=== PATIENT | male | born 1995 | race Caucasian/White ===

== ENCOUNTER 2016-04-17 11:16 | Emergency (ER) | payer SELFPAY ==
[2016-04-17] MEDS ORDERED: ADACEL/BOOSTRIX VACCINE (DIPHTH/PERTUSS/ACELL/TETANUS)0.5ML SYR (90715) As Ordered ONE (11:41)
--- NOTE | 2016-04-17 11:50 | EDDOCDS ---
Physician Documentation [facility] Name: Jimmie Noble Age: 20 yrs Sex: Male : 1995 Arrival Date: 04/17/2016 Time: 11:16 Bed Triage 1 Private MD: NO PRIMARY PHYSICIAN, . Disposition: 04/17/16 11:36 Discharged to Home/Self Care. Impression: Laceration without foreign body of scalp. - Condition is Stable. - Discharge Instructions: Stitches, Virgen, or Adhesive Wound Closure, Facial or Scalp Contusion, [id number]. - Medication Reconciliation, Local Pharmacy Hours form. - [facility]; When: 1 week; Reason: Staple/Suture removal, Further diagnostic work-up, Recheck today's complaints, Continuance of care. - Problem is new. - Symptoms have improved. Historical: - Allergies: no known allergies; - Home Meds: 1. Ventolin Rotahaler/Rotacaps Inhl 2 puffs as needed - PMHx: Asthma; - Social history: Smoking status: Patient uses tobacco products, current every day smoker. No barriers to communication noted, The patient speaks fluent Lao. - Family history: Not pertinent. - : The pt / caregiver states he / she is not on anticoagulants. Home medication list is obtained from the patient. - Exposure Risk Screening:: None identified. - Tetanus status: unknown. Vital Signs: 04/17 11:20 BP 144 / 61; Pulse 138; Resp 17; Temp 98.8(T); Pulse Ox 98% on R/A; Weight 90.72 kg / lr2 200 lbs (R); Height 6 ft. 0 in. (182.88 cm) (R); Pain 7/10; 11:20 Body Mass Index 27.12 (90.72 kg, 182.88 cm) lr2 Shahab Coma Score: 11:25 Eye Response: spontaneous(4). Verbal Response: oriented(5). Motor Response: obeys kr3 commands(6). Total: 15. Procedures: 11:34 Laceration repair:. btw Laceration: 11:34 Wound Repair of 1.5cm ( 0.6in ) full thickness laceration to right frontal area. Distal btw neuro/vascular/tendon intact. Anesthesia: None with None. Wound prep: Simple cleansing with hibiclenz by provider, Wound irrigation with saline by provider, Wound explored minimally. Skin closed with 3 thin layer [place] using Staple gun. Dressed with bandaid. Patient tolerated well. MDM: 11:40 Financial registration complete. lg 11:40 Tetanus- Diptheria-Acellular Pertussis 0.5 ml IM once; Routine booster 10-64yrs, >64 btw [facility]. Administered Medications: 11:43 Drug: Tetanus- Diptheria-Acellular Pertussis 0.5 ml [diphth,pertussis(acel),tetanus 2.5 kr3 Lf unit-8 mcg-5 Lf/0.5mL IM syringe (0.5 mL)] {Ibm Bpm Developer: [employer]. Exp: 05/20/2018. Lot #: [id number]. } Route: IM; Site: left deltoid; Signatures: Amie Felder Reg Reg lg Robie, Kathleen, RN RN kr3 Javon Prasad PA PA btw MTDPrudence
--- NOTE | 2016-04-17 11:50 | EDDOCDS ---
Nurse's Notes [facility] Name: Jimmie Noble Age: 20 yrs Sex: Male : 1995 Arrival Date: 04/17/2016 Time: 11:16 Bed Triage 1 Private MD: NO PRIMARY PHYSICIAN, . Diagnosis: Laceration without foreign body of scalp Presentation: 04/17 11:25 Presenting complaint: Patient states: slipped off steps last night and hit head. No kr3 LOC. reports cut right side of head. This patient has no additional risk factors. Mechanism of Injury: resulted from a fall. Adult Sepsis Screening: The patient does not have new or worsening altered mentation. Patient's respiratory rate is less than 22. Systolic blood pressure is greater than 100. Patient has a qSOFA score of 0- Negative Sepsis Screen. Suicide/Homicide risk assessment- the patient denies having any suicidal and/or homicidal ideations and does not present with any other emotional, behavioral or mental health complaints. Status: Patient is not a public service director or dependent. Transition of care: patient was not received from another setting of care. 11:25 Acuity: VINCE Level 4 kr3 11:25 Method Of Arrival: Walkin/Carried/Asstd kr3 Triage Assessment: 11:28 General: Appears in no apparent distress, comfortable, Behavior is cooperative. Pain: kr3 Location: head Pain currently is 6 out of 10 on a pain scale. Pt Declines HIV testing. Neurological: Level of Consciousness is awake, alert, Reports no additional symptoms. Respiratory: Respiratory effort is even, unlabored. Derm: Skin is normal. Injury Description: Laceration sustained to left occipital area is bleeding no active bleeding noted. Historical: - Allergies: no known allergies; - Home Meds: 1. Ventolin Rotahaler/Rotacaps Inhl 2 puffs as needed - PMHx: Asthma; - Social history: Smoking status: Patient uses tobacco products, current every day smoker. No barriers to communication noted, The patient speaks fluent Nepali. - Family history: Not pertinent. - : The pt / caregiver states he / she is not on anticoagulants. Home medication list is obtained from the patient. - Exposure Risk Screening:: None identified. - Tetanus status: unknown. Screenin:45 Screening information is obtained from the patient. Fall risk: No risks identified. kr3 Assistance ADL's: requires no assistance with activities of daily living. Abuse/DV Screen: The patient / caregiver reports he/she is: not in a situation that causes fear, pain or injury. Nutritional screening: No deficits noted. Advance Directives: Currently, there is no health care proxy. home support is adequate. Assessment: 11:45 Reassessment: Patient appears in no apparent distress at this time. Neurological: No kr3 deficits noted. Vital Signs: 11:20 BP 144 / 61; Pulse 138; Resp 17; Temp 98.8(T); Pulse Ox 98% on R/A; Weight 90.72 kg lr2 (R); Height 6 ft. 0 in. (182.88 cm) (R); Pain 7/10; 11:20 Body Mass Index 27.12 (90.72 kg, 182.88 cm) lr2 Vitals: 11:20 Log In Time: April 17, 2016 at 11:16. lr2 Shahab Coma Score: 11:25 Eye Response: spontaneous(4). Verbal Response: oriented(5). Motor Response: obeys kr3 commands(6). Total: 15. ED Course: 11:18 Patient visited by Elise Mauricio. lr2 11:18 Patient moved to Waiting lr2 11:19 NO PRIMARY PHYSICIAN, . is Private Physician. lr2 11:19 Patient moved to Pre RCE lr2 11:25 Patient moved to Triage 1 srm 11:26 Triage Initiated kr3 11:27 Javon Prasad PA is PHCP. btw 11:27 Altagracia Mckeon MD is Attending Physician. btw 11:27 Patient visited by Javon Prasad PA. btw 11:36 [facility] is Referral Physician. btw 11:45 The patient / caregiver is instructed regarding the plan of care and ED course. kr3 Accompanied by Friend, Patient has correct armband on for positive identification. 11:45 No IV's were initiated during this patient's visit. No procedures done that require kr3 assistance. Administered Medications: 11:43 Drug: Tetanus- Diptheria-Acellular Pertussis 0.5 ml [diphth,pertussis(acel),tetanus 2.5 kr3 Lf unit-8 mcg-5 Lf/0.5mL IM syringe (0.5 mL)] {Angiography Nurse: [employer]. Exp: 05/20/2018. Lot #: [id number]. } Route: IM; Site: left deltoid; Order Results: There are currently no results for this order. Outcome: 11:36 Discharge ordered by Provider. btw 11:45 No special radiology studies were completed. Property sent home with patient. kr3 11:49 Discharge Assessment: patient administered narcotics - no. The following High Risk kr3 Discharge criteria are identified: None. Discharged to home ambulatory. Condition: stable. Discharge instructions given to patient, Instructed on discharge instructions, follow up and referral plans. Demonstrated understanding of instructions, Pt was receptive of discharge instructions/ teaching. 11:49 Patient left the ED. kr3 Signatures: Aurea Barrera, RN RN Sarah SandyRN RN kr3 Javon Prasad PA PA btw Ross, Laura lr2 ARTEMIO
--- NOTE | 2016-04-19 12:50 | EDDOCDS ---
Physician Documentation [facility] Name: Jimmie Noble Age: 20 yrs Sex: Male : 1995 Arrival Date: 04/17/2016 Time: 11:16 Bed Triage 1 Private MD: NO PRIMARY PHYSICIAN, . Disposition: 04/17/16 11:36 Discharged to Home/Self Care. Impression: Laceration without foreign body of scalp. - Condition is Stable. - Discharge Instructions: Stitches, Virgen, or Adhesive Wound Closure, Facial or Scalp Contusion, [id number]. - Medication Reconciliation, Local Pharmacy Hours form. - Follow up: [facility]; When: 1 week; Reason: Staple/Suture removal, Further diagnostic work-up, Recheck today's complaints, Continuance of care. - Problem is new. - Symptoms have improved. Historical: - Allergies: no known allergies; - Home Meds: 1. Ventolin Rotahaler/Rotacaps Inhl 2 puffs as needed - PMHx: Asthma; - Social history: Smoking status: Patient uses tobacco products, current every day smoker. No barriers to communication noted, The patient speaks fluent Azeri. - Family history: Not pertinent. - : The pt / caregiver states he / she is not on anticoagulants. Home medication list is obtained from the patient. - Exposure Risk Screening:: None identified. - Tetanus status: unknown. Vital Signs: 04/17 11:20 BP 144 / 61; Pulse 138; Resp 17; Temp 98.8(T); Pulse Ox 98% on R/A; Weight 90.72 kg / lr2 200 lbs (R); Height 6 ft. 0 in. (182.88 cm) (R); Pain 7/10; 11:20 Body Mass Index 27.12 (90.72 kg, 182.88 cm) lr2 Shahab Coma Score: 11:25 Eye Response: spontaneous(4). Verbal Response: oriented(5). Motor Response: obeys kr3 commands(6). Total: 15. Procedures: 11:34 Laceration repair:. btw Laceration: 11:34 Wound Repair of 1.5cm ( 0.6in ) full thickness laceration to right frontal area. Distal btw neuro/vascular/tendon intact. Anesthesia: None with None. Wound prep: Simple cleansing with hibiclenz by provider, Wound irrigation with saline by provider, Wound explored minimally. Skin closed with 3 thin layer [place] using Staple gun. Dressed with bandaid. Patient tolerated well. MDM: 11:40 Financial registration complete. lg 11:40 Tetanus- Diptheria-Acellular Pertussis 0.5 ml IM once; Routine booster 10-64yrs, >64 btw with child contact [employer] ordered. 12:15 [facility] Payment Agreement was scanned into [employer] and attached to record. lg 13:51 T-Sheet-- Draft Copy was scanned into [employer] and attached to record. gb Administered Medications: 11:43 Drug: Tetanus- Diptheria-Acellular Pertussis 0.5 ml [diphth,pertussis(acel),tetanus 2.5 kr3 Lf unit-8 mcg-5 Lf/0.5mL IM syringe (0.5 mL)] {Supervisor [employer]: [employer]. Exp: 05/20/2018. Lot #: [id number]. } Route: IM; Site: left deltoid; Signatures: Chacha Ruvalcaba, Reg Reg gb Amie Felder, Reg Reg lg Sarah Mederos,RN RN kr3 Javon Prasad PA PA btw The chart was reviewed and I authenticate all verbal orders and agree with the evaluation and treatment provided.Attachments: 12:15 [facility] Payment Agreement lg 13:51 T-Sheet-- Draft Copy gb Chart Complete MTDD
--- NOTE | 2016-04-19 12:50 | EDDOCDS ---
Nurse's Notes [facility] Name: Jimmie Noble Age: 20 yrs Sex: Male : 1995 Arrival Date: 04/17/2016 Time: 11:16 Bed Triage 1 Private MD: NO PRIMARY PHYSICIAN, . Diagnosis: Laceration without foreign body of scalp Presentation: 04/17 11:25 Presenting complaint: Patient states: slipped off steps last night and hit head. No kr3 LOC. reports cut right side of head. This patient has no additional risk factors. Mechanism of Injury: resulted from a fall. Adult Sepsis Screening: The patient does not have new or worsening altered mentation. Patient's respiratory rate is less than 22. Systolic blood pressure is greater than 100. Patient has a qSOFA score of 0- Negative Sepsis Screen. Suicide/Homicide risk assessment- the patient denies having any suicidal and/or homicidal ideations and does not present with any other emotional, behavioral or mental health complaints. Status: Patient is not a compressor service technician or dependent. Transition of care: patient was not received from another setting of care. 11:25 Acuity: VINCE Level 4 kr3 11:25 Method Of Arrival: Walkin/Carried/Asstd kr3 Triage Assessment: 11:28 General: Appears in no apparent distress, comfortable, Behavior is cooperative. Pain: kr3 Location: head Pain currently is 6 out of 10 on a pain scale. Pt Declines HIV testing. Neurological: Level of Consciousness is awake, alert, Reports no additional symptoms. Respiratory: Respiratory effort is even, unlabored. Derm: Skin is normal. Injury Description: Laceration sustained to left occipital area is bleeding no active bleeding noted. Historical: - Allergies: no known allergies; - Home Meds: 1. Ventolin Rotahaler/Rotacaps Inhl 2 puffs as needed - PMHx: Asthma; - Social history: Smoking status: Patient uses tobacco products, current every day smoker. No barriers to communication noted, The patient speaks fluent Croatian. - Family history: Not pertinent. - : The pt / caregiver states he / she is not on anticoagulants. Home medication list is obtained from the patient. - Exposure Risk Screening:: None identified. - Tetanus status: unknown. Screenin:45 Screening information is obtained from the patient. Fall risk: No risks identified. kr3 Assistance ADL's: requires no assistance with activities of daily living. Abuse/DV Screen: The patient / caregiver reports he/she is: not in a situation that causes fear, pain or injury. Nutritional screening: No deficits noted. Advance Directives: Currently, there is no health care proxy. home support is adequate. Assessment: 11:45 Reassessment: Patient appears in no apparent distress at this time. Neurological: No kr3 deficits noted. Vital Signs: 11:20 BP 144 / 61; Pulse 138; Resp 17; Temp 98.8(T); Pulse Ox 98% on R/A; Weight 90.72 kg lr2 (R); Height 6 ft. 0 in. (182.88 cm) (R); Pain 7/10; 11:20 Body Mass Index 27.12 (90.72 kg, 182.88 cm) lr2 Vitals: 11:20 Log In Time: April 17, 2016 at 11:16. lr2 Shahab Coma Score: 11:25 Eye Response: spontaneous(4). Verbal Response: oriented(5). Motor Response: obeys kr3 commands(6). Total: 15. ED Course: 11:18 Patient visited by Elise Mauricio. lr2 11:18 Patient moved to Waiting lr2 11:19 NO PRIMARY PHYSICIAN, . is Private Physician. lr2 11:19 Patient moved to Pre RCE lr2 11:25 Patient moved to Triage 1 srm 11:26 Triage Initiated kr3 11:27 Javon Prasad PA is PHCP. btw 11:27 Altagracia Mckeon MD is Attending Physician. btw 11:27 Patient visited by Javon Prasad PA. btw 11:36 [facility] is Referral Physician. btw 11:45 The patient / caregiver is instructed regarding the plan of care and ED course. kr3 Accompanied by Friend, Patient has correct armband on for positive identification. 11:45 No IV's were initiated during this patient's visit. No procedures done that require kr3 assistance. 12:15 [facility] Payment Agreement was scanned into [employer] and attached to record. lg 13:51 T-Sheet-- Draft Copy was scanned into [employer] and attached to record. gb Administered Medications: 11:43 Drug: Tetanus- Diptheria-Acellular Pertussis 0.5 ml [diphth,pertussis(acel),tetanus 2.5 kr3 Lf unit-8 mcg-5 Lf/0.5mL IM syringe (0.5 mL)] {Truss Designer: [employer]. Exp: 05/20/2018. Lot #: [id number]. } Route: IM; Site: left deltoid; Order Results: There are currently no results for this order. Outcome: 11:36 Discharge ordered by Provider. btw 11:45 No special radiology studies were completed. Property sent home with patient. kr3 11:49 Discharge Assessment: patient administered narcotics - no. The following High Risk kr3 Discharge criteria are identified: None. Discharged to home ambulatory. Condition: stable. Discharge instructions given to patient, Instructed on discharge instructions, follow up and referral plans. Demonstrated understanding of instructions, Pt was receptive of discharge instructions/ teaching. 11:49 Patient left the ED. kr3 Signatures: Aurea Barrera, RN RN [facility] Chacha Ruvalcaba, Reg Reg gb Amie Felder, Reg Reg lg Sarah Mederos RN RN kr3 Javon Prasad PA PA btw Elise Mauricio2 Chart Complete ARTEMIO
--- NOTE | 2016-04-19 12:50 | EDDOCDS ---
Physician Documentation [facility] Name: Jimmie Noble Age: 20 yrs Sex: Male : 1995 Arrival Date: 04/17/2016 Time: 11:16 Bed Triage 1 Private MD: NO PRIMARY PHYSICIAN, . Disposition: 04/17/16 11:36 Discharged to Home/Self Care. Impression: Laceration without foreign body of scalp. - Condition is Stable. - Discharge Instructions: Stitches, Virgen, or Adhesive Wound Closure, Facial or Scalp Contusion, [id number]. - Medication Reconciliation, Local Pharmacy Hours form. - Follow up: [facility]; When: 1 week; Reason: Staple/Suture removal, Further diagnostic work-up, Recheck today's complaints, Continuance of care. - Problem is new. - Symptoms have improved. Historical: - Allergies: no known allergies; - Home Meds: 1. Ventolin Rotahaler/Rotacaps Inhl 2 puffs as needed - PMHx: Asthma; - Social history: Smoking status: Patient uses tobacco products, current every day smoker. No barriers to communication noted, The patient speaks fluent Maori. - Family history: Not pertinent. - : The pt / caregiver states he / she is not on anticoagulants. Home medication list is obtained from the patient. - Exposure Risk Screening:: None identified. - Tetanus status: unknown. Vital Signs: 04/17 11:20 BP 144 / 61; Pulse 138; Resp 17; Temp 98.8(T); Pulse Ox 98% on R/A; Weight 90.72 kg / lr2 200 lbs (R); Height 6 ft. 0 in. (182.88 cm) (R); Pain 7/10; 11:20 Body Mass Index 27.12 (90.72 kg, 182.88 cm) lr2 Shahab Coma Score: 11:25 Eye Response: spontaneous(4). Verbal Response: oriented(5). Motor Response: obeys kr3 commands(6). Total: 15. Procedures: 11:34 Laceration repair:. btw Laceration: 11:34 Wound Repair of 1.5cm ( 0.6in ) full thickness laceration to right frontal area. Distal btw neuro/vascular/tendon intact. Anesthesia: None with None. Wound prep: Simple cleansing with hibiclenz by provider, Wound irrigation with saline by provider, Wound explored minimally. Skin closed with 3 thin layer [place] using Staple gun. Dressed with bandaid. Patient tolerated well. MDM: 11:40 Financial registration complete. lg 11:40 Tetanus- Diptheria-Acellular Pertussis 0.5 ml IM once; Routine booster 10-64yrs, >64 btw with child contact [employer] ordered. 12:15 [facility] Payment Agreement was scanned into [employer] and attached to record. lg 13:51 T-Sheet-- Draft Copy was scanned into [employer] and attached to record. gb Administered Medications: 11:43 Drug: Tetanus- Diptheria-Acellular Pertussis 0.5 ml [diphth,pertussis(acel),tetanus 2.5 kr3 Lf unit-8 mcg-5 Lf/0.5mL IM syringe (0.5 mL)] {Nursing Administrator: [employer]. Exp: 05/20/2018. Lot #: [id number]. } Route: IM; Site: left deltoid; Signatures: Chacha Ruvalcaba, Reg Reg gb Amie Felder, Reg Reg lg Sarah Mederos,RN RN kr3 Javon Prasad PA PA btw The chart was reviewed and I authenticate all verbal orders and agree with the evaluation and treatment provided.Attachments: 12:15 [facility] Payment Agreement lg 13:51 T-Sheet-- Draft Copy gb Chart Complete MTDD
== END 2016-04-17 11:49 | disposition home or self-care (01) ==
LOC: M ED 11:16
DX: S01.01XA Laceration without foreign body of scalp, initial encounter (principal); W10.8XXA Fall (on) (from) other stairs and steps, initial encounter; Y92.018 Other place in single-family (private) house as the place of occurrence of the external cause; Y93.89 Activity, other specified; Y99.8 Other external cause status; J45.909 Unspecified asthma, uncomplicated; F17.210 Nicotine dependence, cigarettes, uncomplicated

== ENCOUNTER 2016-04-25 19:13 | Emergency (ER) | payer SELFPAY ==
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
== END 2016-04-25 20:18 | disposition home or self-care (01) ==
LOC: M ED 19:13
DX: Z48.02 Encounter for removal of sutures (principal); J45.909 Unspecified asthma, uncomplicated; F17.210 Nicotine dependence, cigarettes, uncomplicated

== ENCOUNTER 2016-05-04 11:31 | Emergency (ER) | payer MEDICAID, SELFPAY ==
[~2016-05-04] VITALS: Ht 182.9 cm; Wt 90.7 kg
[2016-05-04] MEDS ORDERED: NS 1,000 ML IV ONE (14:15)
[2016-05-04] MEDS ORDERED: ONDANSETRON 4MG/2ML VIAL (J2405) IV ONE (14:15)
[2016-05-04 14:29] LABS: BASO % 0.3 % (0.0-1.0); EOS # 0.3 K/mm3 (0.0-0.50); EOS % 2.7 % (0.0-3.0); LARGE UNSTAINED CELL # 0.1 K/mm3 (0.0-0.4); LARGE UNSTAINED CELL % 0.5 % (0.0-4.0); LYMPH % 8.8 % (24.0-44.0); MEAN CORPUSCULAR HEMOGLOBIN 30.4 pg (27.0-33.0); MEAN CORPUSCULAR VOLUME 89.4 fl (80.0-96.0); MONO # 0.5 K/mm3 (0.0-0.8); MONO % 4.6 % (0.0-5.0); NEUTROPHILS # 9.3 K/mm3 (1.8-7.7); NEUTROPHILS % 83.1 % (36.0-66.0); PLATELET COUNT, AUTOMATED 188 k/mm3 (150-450); RED CELL DISTRIBUTION WIDTH 12.9 % (11.5-14.5); WHITE BLOOD COUNT 11.2 K/mm3 (4.0-10.0)
[2016-05-04] MEDS ORDERED: KETOROLAC 30 MG/ML VIAL (J1885) IV ONE (14:30)
[2016-05-04 15:06] LABS: ALBUMIN/GLOBULIN RATIO 1.38 (1.00-1.93); ALKALINE PHOSPHATASE 75 U/L (45-117); ALT/SGPT 17 U/L (12-78); AMYLASE 53 U/L (25-115); ANION GAP 7 MEQ/L (8-16); AST/SGOT 14 U/L (15-37); BILIRUBIN,DIRECT 0.2 MG/DL (0.0-0.2); BILIRUBIN,TOTAL 0.7 MG/DL (0.2-1.0); BLOOD UREA NITROGEN 18 MG/DL (7-18); CALCIUM LEVEL 8.7 MG/DL (8.5-10.1); CARBON DIOXIDE LEVEL 27 MEQ/L (21-32); CHLORIDE LEVEL 105 MEQ/L (98-107); CREATININE FOR GFR 0.76 MG/DL (0.70-1.30); GLOMERULAR FILTRATION RATE > 60.0 (>60); GLUCOSE, FASTING 76 MG/DL (70-105); POTASSIUM SERUM 3.8 MEQ/L (3.5-5.1); SODIUM LEVEL 139 MEQ/L (136-145); TOTAL PROTEIN 6.9 GM/DL (6.4-8.2)
[2016-05-04] MEDS ORDERED: ZOFR4TAB3 PO (15:52)
[2016-05-04 16:01] VITALS: BP 107/59
[2016-06-09] MEDS ORDERED: PRED20TA PO (14:44)
== END 2016-05-04 16:17 | disposition home or self-care (01) ==
LOC: M ED 14:56
DX: R11.2 Nausea with vomiting, unspecified (principal); R19.7 Diarrhea, unspecified; R10.9 Unspecified abdominal pain; E86.0 Dehydration; F17.210 Nicotine dependence, cigarettes, uncomplicated
CPT/HCPCS: 36415; 80048; 80076; 82150; 83690; 85025; 96374; 96375; 99283; J1885; J2405

== ENCOUNTER 2016-05-11 17:32 | Emergency (ER) | payer SELFPAY ==
[~2016-05-11] VITALS: Ht 185.4 cm; Wt 90.7 kg
[~2016-05-11 17:32] MED LIST: ZOFR4TAB3 PO
[2016-05-11] MEDS ORDERED: NS 1,000 ML IV ONE (19:00)
[2016-05-11] MEDS ORDERED: ONDANSETRON 4MG/2ML VIAL (J2405) IV ONE (19:00)
[2016-05-11] MEDS ORDERED: MORPHINE 4 MG/ML 1ML SYRINGE IV ONE (19:00)
[2016-05-11 19:17] LABS: CALCIUM OXALATE CRYSTALS SMALL
[2016-05-11 19:37] LABS: BASO % 0.5 % (0.0-1.0); EOS # 0.3 K/mm3 (0.0-0.50); EOS % 4.2 % (0.0-3.0); LARGE UNSTAINED CELL # 0.1 K/mm3 (0.0-0.4); LARGE UNSTAINED CELL % 1.4 % (0.0-4.0); LYMPH % 23.9 % (24.0-44.0); MEAN CORPUSCULAR VOLUME 88.1 fl (80.0-96.0); MONO # 0.4 K/mm3 (0.0-0.8); MONO % 4.9 % (0.0-5.0); NEUTROPHILS # 5.2 K/mm3 (1.8-7.7); NEUTROPHILS % 65.1 % (36.0-66.0); PLATELET COUNT, AUTOMATED 200 k/mm3 (150-450); RED CELL DISTRIBUTION WIDTH 12.9 % (11.5-14.5)
--- NOTE | 2016-05-11 19:50 | REPUSA ---
CLINICAL HISTORY: Rule out renal stones. TECHNIQUE: Multiple axial, sagittal and coronal CT images were obtained through the abdomen and pelvi s without administration of oral or IV contrast material. COMMENTS: The liver is of uniform attenuation without mass or defect. There is no intra or extrahepatic biliary ductal dilatation. The spleen is normal. The gallbladder is within normal limits. The pancreas is of normal contour and attenuation characteristics. There is no evidence of adrenal mass. The kidneys are normal in size, shape and configuration. No renal or ureteral calculi are identified. There is no hydroureter or hydronephrosis. There is no evidence for appendicitis. There is wall thickening noted involving all segments compatib le with severe enteritis. No evidence for small or large bowel obstruction. There is no evidence of abdominal ascites or lymphadenopathy. There is no evidence of intrinsic or extrinsic bladder mass. There is no pelvic ascites or lymphadeno rudi. Images of the lung bases show no evidence of pleural or parenchymal mass. There are no pleural effusi ons. The bony structures are free of lytic or blastic lesions. IMPRESSION: No renal or ureteral calculi. Severe enteritis. Infectious and inflammatory etiologies are considered. Consider consultation with GI services Thank you for your kind referral of this patient.
[2016-05-11 20:01] LABS: ALBUMIN/GLOBULIN RATIO 1.29 (1.00-1.93); ALKALINE PHOSPHATASE 65 U/L (45-117); ALT/SGPT 18 U/L (12-78); ANION GAP 9 MEQ/L (8-16); AST/SGOT 14 U/L (15-37); BILIRUBIN,DIRECT < 0.1 MG/DL (0.0-0.2); BILIRUBIN,TOTAL 0.2 MG/DL (0.2-1.0); BLOOD UREA NITROGEN 18 MG/DL (7-18); CALCIUM LEVEL 8.4 MG/DL (8.5-10.1); CARBON DIOXIDE LEVEL 27 MEQ/L (21-32); CHLORIDE LEVEL 107 MEQ/L (98-107); GLOMERULAR FILTRATION RATE > 60.0 (>60); GLUCOSE, FASTING 89 MG/DL (70-105); POTASSIUM SERUM 3.9 MEQ/L (3.5-5.1); SODIUM LEVEL 143 MEQ/L (136-145); TOTAL PROTEIN 7.1 GM/DL (6.4-8.2)
[2016-05-11] MEDS ORDERED: FLAG500T PO (20:56)
[2016-05-11] MEDS ORDERED: CIPR500T89 PO (20:56)
[2016-05-11] MEDS ORDERED: PRED20TA PO (20:56)
[2016-05-11] MEDS ORDERED: HYDR-3713 PO (20:57)
[2016-05-11] MEDS ORDERED: CIPROFLOXACIN 500 MG TAB PO ONE (21:00)
[2016-05-11] MEDS ORDERED: metroNIDAZOLE (FLAGYL) 500 MG TAB PO ONE (21:00)
[2016-05-11] MEDS ORDERED: predniSONE 20 MG TAB PO ONE (21:00)
[2016-05-11 21:09] VITALS: BP 117/68
== END 2016-05-11 21:18 | disposition home or self-care (01) ==
LOC: M ED 18:20
DX: K52.9 Noninfective gastroenteritis and colitis, unspecified (principal); R31.9 Hematuria, unspecified; J45.909 Unspecified asthma, uncomplicated; Z87.442 Personal history of urinary calculi; Z79.899 Other long term (current) drug therapy; F17.210 Nicotine dependence, cigarettes, uncomplicated
CPT/HCPCS: 74176; 80048; 80076; 81001; 83690; 85025; 87086; 96374; 96375; 99282; J2405

== ENCOUNTER 2016-05-14 19:28 | Emergency (ER) | payer MEDICAID, OTHER, SELFPAY ==
[~2016-05-14] VITALS: Ht 182.9 cm; Wt 83.9 kg
[~2016-05-14 19:28] MED LIST changes: +CIPR500T89 PO; +FLAG500T PO; +HYDR-3713 PO; +PRED20TA PO
[2016-05-14] MEDS ORDERED: ZOFR4TAB3 PO (19:48)
[2016-05-14 20:35] LABS: BASO % 0.1 % (0.0-1.0); EOS # 0.1 K/mm3 (0.0-0.50); EOS % 0.8 % (0.0-3.0); LARGE UNSTAINED CELL # 0.1 K/mm3 (0.0-0.4); LARGE UNSTAINED CELL % 0.5 % (0.0-4.0); LYMPH # 1.1 K/mm3 (1.5-6.5); LYMPH % 7.2 % (24.0-44.0); MEAN CORPUSCULAR HGB CONC 32.8 g/dl (32.0-36.5); MEAN CORPUSCULAR VOLUME 88.5 fl (80.0-96.0); MONO # 0.5 K/mm3 (0.0-0.8); MONO % 3.3 % (0.0-5.0); NEUTROPHILS # 12.4 K/mm3 (1.8-7.7); NEUTROPHILS % 88.2 % (36.0-66.0); PLATELET COUNT, AUTOMATED 217 k/mm3 (150-450)
[2016-05-14 20:36] LABS: ALBUMIN 3.8 GM/DL (3.2-5.2); ALBUMIN/GLOBULIN RATIO 1.46 (1.00-1.93); ALKALINE PHOSPHATASE 58 U/L (45-117); ALT/SGPT 19 U/L (12-78); AMYLASE 46 U/L (25-115); ANION GAP 7 MEQ/L (8-16); AST/SGOT 5 U/L (15-37); BILIRUBIN,DIRECT < 0.1 MG/DL (0.0-0.2); BILIRUBIN,TOTAL 0.2 MG/DL (0.2-1.0); BLOOD UREA NITROGEN 21 MG/DL (7-18); CALCIUM LEVEL 8.4 MG/DL (8.5-10.1); CARBON DIOXIDE LEVEL 27 MEQ/L (21-32); CHLORIDE LEVEL 108 MEQ/L (98-107); CREATININE FOR GFR 0.82 MG/DL (0.70-1.30); GLOMERULAR FILTRATION RATE > 60.0 (>60); GLUCOSE, FASTING 171 MG/DL (70-105); POTASSIUM SERUM 3.9 MEQ/L (3.5-5.1); SODIUM LEVEL 142 MEQ/L (136-145); TOTAL PROTEIN 6.4 GM/DL (6.4-8.2)
[2016-05-14] MEDS ORDERED: MORPHINE 4 MG/ML 1ML SYRINGE IV ONE (21:00)
--- NOTE | 2016-05-14 22:50 | REPUSA ---
CLINICAL HISTORY: RENAL COLIC TECHNIQUE: Multiple axial, sagittal and coronal CT images were obtained through the abdomen and pelvi s without administration of oral or IV contrast material. COMMENTS: The liver is of uniform attenuation without mass or defect. There is no intra or extrahepatic biliary ductal dilatation. The spleen is normal. The gallbladder is contracted. The pancreas is of normal co ntour and attenuation characteristics. There is no evidence of adrenal mass. The kidneys are normal in size, shape and configuration. No renal or ureteral calculi are identified. There is no hydroureter or hydronephrosis. There is no evidence for appendicitis. There is no bowel wall thickening. No evidence for small or la rge bowel obstruction. There is no evidence of abdominal ascites or lymphadenopathy. There is no evidence of intrinsic or extrinsic bladder mass. There is no pelvic ascites or lymphadeno rudi. Images of the lung bases show no evidence of pleural or parenchymal mass. There are no pleural effusi ons. The bony structures are free of lytic or blastic lesions. IMPRESSION: No acute abdominal pathology. No renal or ureteral calculi. Thank you for your kind referral of this patient.
[2016-05-14] MEDS ORDERED: PYRI200T5 PO (23:26)
[2016-05-14] MEDS ORDERED: PHENAZOPYRIDINE 100 MG TAB PO ONE (23:30)
[2016-05-14 23:57] VITALS: BP 106/58
== END 2016-05-14 23:59 | disposition home or self-care (01) ==
LOC: EDBD 19:28 → M ED 20:16
DX: N30.91 Cystitis, unspecified with hematuria (principal)

== ENCOUNTER → 2016-05-17 | Outpatient (REF) | payer MEDICAID ==
[~2016-05-17] MED LIST changes: +PYRI200T5 PO
== END ==
LOC: M SMT 17:01
PROVIDERS: ATTEND Nurse Practitioner Women's Health
DX: R31.0 Gross hematuria (principal)

== ENCOUNTER 2016-05-24 16:05 | Emergency (ER) | payer MEDICAID, OTHER, SELFPAY ==
[~2016-05-24] VITALS: Ht 182.9 cm; Wt 84.8 kg
[2016-05-24] MEDS ORDERED: NS 1,000 ML IV ONE (18:00)
[2016-05-24] MEDS ORDERED: PANTOPRAZOLE 40MG INJ (PROTONIX) (C9113) IV ONE (18:00)
[2016-05-24] MEDS ORDERED: MORPHINE 4 MG/ML 1ML SYRINGE IV PRN (18:00)
[2016-05-24] MEDS ORDERED: ONDANSETRON 4MG/2ML VIAL (J2405) IV ONE (18:00)
--- NOTE | 2016-05-24 18:18 | REP ---
Clinical: abdominal pain. Technique: Upright view of the chest with supine and upright views of the abdomen and pelvis. Findings: Frontal upright view of the chest demonstrates no acute cardiopulmonary process or free air below the diaphragm to suspect pneumoperitoneum. Supine and upright views of the abdomen and pelvis demonstrate nonspecific bowel gas pattern without obstruction or perforation. No organomegaly. No abnormal calcifications. Skeletal structures normal for age. Impression: Nonspecific bowel gas pattern. Signed by Macario Thompson MD 05/24/2016 06:10 P
[2016-05-24 18:23] LABS: BASO % 0.5 % (0.0-1.0); EOS # 0.3 K/mm3 (0.0-0.50); EOS % 4.1 % (0.0-3.0); INR 0.93; LARGE UNSTAINED CELL # 0.1 K/mm3 (0.0-0.4); LARGE UNSTAINED CELL % 1.5 % (0.0-4.0); LYMPH # 2.3 K/mm3 (1.5-6.5); LYMPH % 31.1 % (24.0-44.0); MEAN CORPUSCULAR HEMOGLOBIN 29.7 pg (27.0-33.0); MEAN CORPUSCULAR HGB CONC 33.5 g/dl (32.0-36.5); MEAN CORPUSCULAR VOLUME 88.9 fl (80.0-96.0); MONO # 0.5 K/mm3 (0.0-0.8); NEUTROPHILS # 4.2 K/mm3 (1.8-7.7); NEUTROPHILS % 56.8 % (36.0-66.0); PLATELET COUNT, AUTOMATED 206 k/mm3 (150-450); RED CELL DISTRIBUTION WIDTH 12.8 % (11.5-14.5); WHITE BLOOD COUNT 7.5 K/mm3 (4.0-10.0)
[2016-05-24 18:42] LABS: ALBUMIN 3.6 GM/DL (3.2-5.2); ALBUMIN/GLOBULIN RATIO 1.44 (1.00-1.93); ALKALINE PHOSPHATASE 55 U/L (45-117); ALT/SGPT 21 U/L (12-78); AMYLASE 45 U/L (25-115); ANION GAP 8 MEQ/L (8-16); AST/SGOT 11 U/L (15-37); BILIRUBIN,DIRECT < 0.1 MG/DL (0.0-0.2); BILIRUBIN,TOTAL 0.2 MG/DL (0.2-1.0); BLOOD UREA NITROGEN 17 MG/DL (7-18); CALCIUM LEVEL 8.1 MG/DL (8.5-10.1); CARBON DIOXIDE LEVEL 25 MEQ/L (21-32); CHLORIDE LEVEL 107 MEQ/L (98-107); CREATININE FOR GFR 0.78 MG/DL (0.70-1.30); GLOMERULAR FILTRATION RATE > 60.0 (>60); GLUCOSE, FASTING 99 MG/DL (70-105); SODIUM LEVEL 140 MEQ/L (136-145); TOTAL PROTEIN 6.1 GM/DL (6.4-8.2)
[2016-05-24 18:49] LABS: ERYTHROCYTE SEDIMENTATION RATE 2 mm/hr (0-15)
[2016-05-24] MEDS ORDERED: BENT20TA PO (20:01)
[2016-05-24] MEDS ORDERED: PRED20TA PO (20:01)
[2016-05-24 20:14] VITALS: BP 134/68
== END 2016-05-24 20:15 | disposition home or self-care (01) ==
LOC: M ED 17:48
DX: R10.84 Generalized abdominal pain (principal); R19.7 Diarrhea, unspecified; K92.1 Melena; J45.909 Unspecified asthma, uncomplicated; F17.210 Nicotine dependence, cigarettes, uncomplicated; Z79.2 Long term (current) use of antibiotics; Z79.899 Other long term (current) drug therapy; Z87.442 Personal history of urinary calculi
CPT/HCPCS: 74022; 80048; 80076; 81001; 82150; 83605; 83690; 85025; 85610; 85652; 85730; 86140; 86850; 86900; 86901; 96374; 96375; 99282; C9113; J2405

== ENCOUNTER → 2016-05-27 | Outpatient (REF) | payer MEDICAID ==
[~2016-05-27] MED LIST changes: +BENT20TA PO
== END ==
LOC: M LAB REF 17:13
PROVIDERS: ATTEND Emergency Medicine
DX: R19.7 Diarrhea, unspecified (principal)

== ENCOUNTER → 2016-06-14 | Outpatient (CLI) | payer MEDICAID ==
[~2016-06-14] VITALS: Ht 182.9 cm; Wt 88.9 kg
[~2016-06-14] MED LIST changes: +NS 1,000 ML IV SCH
--- NOTE | 2016-06-14 10:11 | ROOR ---
Patient Name: Jimmie Noble Procedure Date: 06/14/2016 9:47 AM Date of : 1995 Age: 20 [facility] Note Status: Finalized Procedure: Colonoscopy to Cecum + ileoscopy Indications: Lower abdominal pain, Clinically significant diarrhea of unexplained origin, Rectal bleeding, Abnormal CT of the GI tract, Weight loss Providers: Kapil Murdock MD Referring MD: Kapil Murdock MD Requesting Provider: Medicines: Monitored Anesthesia Care Complications: No immediate complications. Procedure: Pre-Anesthesia Assessment: - The heart rate, respiratory rate, oxygen saturations, blood pressure, adequacy of pulmonary ventilation, and response to care were monitored throughout the procedure. The Colonoscope was introduced through the anus and advanced to the terminal ileum, with identification of the appendiceal orifice and IC valve. The colonoscopy was performed without difficulty. The patient tolerated the procedure well. The quality of the bowel preparation was excellent. Findings: The perianal and digital rectal examinations were normal. Non-bleeding internal hemorrhoids were found during retroflexion. The hemorrhoids were small and Grade I (internal hemorrhoids that do not prolapse). No other significant abnormalities were identified in a careful examination of the remainder of the colon. The terminal ileum appeared normal. The exam was otherwise without abnormality on direct and retroflexion views. Impression: - Non-bleeding internal hemorrhoids. - The examined portion of the ileum was normal. - The examination was otherwise normal on direct and retroflexion views. - No specimens collected. - The exam was otherwise normal to the cecum. - The examined portion of the ileum was normal. Recommendation: - Patient has a contact number available for emergencies. The signs and symptoms of potential delayed complications were discussed with the patient. Return to normal activities tomorrow. Written discharge instructions were provided to the patient. - High fiber diet. - Discharge patient to home. - Continue present medications. - Repeat colonoscopy at age 49 for screening purposes. - Return to referring physician. - The findings and recommendations were discussed with the patient's family. Kapil Murdock MD Kapil Murdock MD 06/14/2016 10:10:46 AM This report has been signed electronically. Number of Addenda: 0 Note Initiated On: 06/14/2016 9:47 AM Estimated Blood Loss: Estimated blood loss: none.
[2016-06-14 10:35] VITALS: BP 125/55
== END ==
LOC: M OPP 08:34
PROVIDERS: ATTEND Internal Medicine Gastroenterology
DX: R10.30 Lower abdominal pain, unspecified (principal); R19.7 Diarrhea, unspecified; K62.5 Hemorrhage of anus and rectum; K63.4 Enteroptosis; R93.3 Abnormal findings on diagnostic imaging of other parts of digestive tract; K64.0 First degree hemorrhoids; K59.00 Constipation, unspecified; K21.9 Gastro-esophageal reflux disease without esophagitis; J45.909 Unspecified asthma, uncomplicated; Z80.0 Family history of malignant neoplasm of digestive organs; F17.200 Nicotine dependence, unspecified, uncomplicated

== ENCOUNTER 2016-07-19 08:24 | Emergency (ER) | payer OTHER ==
[~2016-07-19] VITALS: Ht 182.9 cm; Wt 88.5 kg
[~2016-07-19 08:24] MED LIST changes: -NS 1,000 ML IV SCH
[2016-07-19] MEDS ORDERED: ACET30TAB PO (08:50)
[2016-07-19] MEDS ORDERED: INDO25CA PO (08:50)
[2016-07-19] MEDS ORDERED: ROBA500T PO (08:50)
[2016-07-19] MEDS: KETOROLAC 60 MG/2 ML VIAL (J1885) IM ONE (08:55)
[2016-07-19 09:12] VITALS: BP 111/64
== END 2016-07-19 09:23 | disposition home or self-care (01) ==
LOC: M ED 08:45
DX: S30.0XXA Contusion of lower back and pelvis, initial encounter (principal); Y04.8XXA Assault by other bodily force, initial encounter; Y92.019 Unspecified place in single-family (private) house as the place of occurrence of the external cause; Y93.89 Activity, other specified; Y99.8 Other external cause status; Z87.442 Personal history of urinary calculi

== ENCOUNTER 2016-10-19 20:02 | Emergency (ER) | payer OTHER ==
[~2016-10-19] VITALS: Ht 182.9 cm; Wt 88.6 kg
[~2016-10-19 20:02] MED LIST changes: +ACET30TAB PO; +CIPR-249 PO; -CIPR500T89 PO; +INDO25CA PO; +PYRI1TAB5 PO; -PYRI200T5 PO; +ROBA500T PO
[2016-10-19] MEDS ORDERED: PERCOCET 5MG/325MG TAB PO ONE (22:45)
[2016-10-19 23:01] LABS: BASO % 0.7 % (0.0-1.0); EOS # 0.3 K/mm3 (0.0-0.50); EOS % 4.4 % (0.0-3.0); LARGE UNSTAINED CELL # 0.2 K/mm3 (0.0-0.4); LYMPH # 2.3 K/mm3 (1.5-6.5); MEAN CORPUSCULAR VOLUME 90.8 fl (80.0-96.0); MONO # 0.6 K/mm3 (0.0-0.8); MONO % 7.7 % (0.0-5.0); NEUTROPHILS # 4.2 K/mm3 (1.8-7.7); NEUTROPHILS % 56.2 % (36.0-66.0); PLATELET COUNT, AUTOMATED 218 k/mm3 (150-450); RED CELL DISTRIBUTION WIDTH 12.8 % (11.5-14.5); WHITE BLOOD COUNT 7.4 K/mm3 (4.0-10.0)
[2016-10-19 23:35] LABS: ANION GAP 8 MEQ/L (8-16); BLOOD UREA NITROGEN 14 MG/DL (7-18); CALCIUM LEVEL 8.6 MG/DL (8.5-10.1); CARBON DIOXIDE LEVEL 27 MEQ/L (21-32); CHLORIDE LEVEL 108 MEQ/L (98-107); CREATININE FOR GFR 0.77 MG/DL (0.70-1.30); GLOMERULAR FILTRATION RATE > 60.0 (>60); GLUCOSE, FASTING 75 MG/DL (70-105); POTASSIUM SERUM 3.9 MEQ/L (3.5-5.1); SODIUM LEVEL 143 MEQ/L (136-145)
[2016-10-19 23:41] LABS: ERYTHROCYTE SEDIMENTATION RATE 2 mm/hr (0-15)
[2016-10-20] MEDS ORDERED: BACT800T5 PO (00:37)
[2016-10-20 00:44] VITALS: BP 122/52
[2016-10-20] MEDS ORDERED: BACTRIM 160MG/800MG DS TAB PO ONE (00:45)
== END 2016-10-20 00:53 | disposition home or self-care (01) ==
LOC: M ED 20:02
DX: L02.214 Cutaneous abscess of groin (principal); Z87.442 Personal history of urinary calculi; F17.210 Nicotine dependence, cigarettes, uncomplicated; Z83.79 Family history of other diseases of the digestive system

== ENCOUNTER 2017-08-04 20:49 | Emergency (ER) | payer OTHER | END 2017-08-04 22:43 | disposition home or self-care (01) | LOC: M ED 20:49 | DX: I86.1 Scrotal varices (principal); Z72.0 Tobacco use | CPT/HCPCS: 76870 ==

== ENCOUNTER 2017-09-19 13:30 | Inpatient (IN) | payer OTHER ==
[2017-09-19 14:19] LABS: HEMATOCRIT 39.9 % (42.0-52.0); HEMOGLOBIN 13.8 g/dl (13.5-17.5); MEAN CORPUSCULAR HEMOGLOBIN 29.5 pg (27.0-33.0); MEAN CORPUSCULAR HGB CONC 34.6 g/dl (32.0-36.5); MEAN CORPUSCULAR VOLUME 85.3 fl (80.0-96.0); PLATELET COUNT, AUTOMATED 220 10^3/uL (150-450); RED BLOOD COUNT 4.68 10^6/uL (4.30-6.10); RED CELL DISTRIBUTION WIDTH 12.2 % (11.5-14.5); WHITE BLOOD COUNT 7.5 10^3/uL (4.0-10.0)
[2017-09-19] MEDS: LORazepam 1 MG TAB PO (14:24)
[2017-09-19 14:41] LABS: AMPHETAMINES LEVEL URINE NEGATIVE (NEGATIVE); BARBITURATES URINE NEGATIVE (NEGATIVE); BENZODIAZEPINES URINE POSITIVE (NEGATIVE); CANNABINOIDS URINE POSITIVE (NEGATIVE); COCAINE METABOLITE URINE NEGATIVE (NEGATIVE); METHADONE URINE NEGATIVE (NEGATIVE); OPIATES URINE NEGATIVE (NEGATIVE); PHENCYCLIDINE URINE NEGATIVE (NEGATIVE)
[2017-09-19 14:44] LABS: ALBUMIN 3.6 GM/DL (3.2-5.2); ALBUMIN/GLOBULIN RATIO 1.13 (1.00-1.93); ALKALINE PHOSPHATASE 72 U/L (45-117); ALT/SGPT 27 U/L (12-78); ANION GAP 7 MEQ/L (8-16); AST/SGOT 18 U/L (7-37); BILIRUBIN,DIRECT 0.2 MG/DL (0.0-0.2); BILIRUBIN,TOTAL 0.4 MG/DL (0.2-1.0); BLOOD UREA NITROGEN 13 MG/DL (7-18); CALCIUM LEVEL 8.6 MG/DL (8.5-10.1); CARBON DIOXIDE LEVEL 27 MEQ/L (21-32); CHLORIDE LEVEL 107 MEQ/L (98-107); CREATININE FOR GFR 0.83 MG/DL (0.70-1.30); GLOMERULAR FILTRATION RATE > 60.0 (>60); GLUCOSE, FASTING 73 MG/DL (70-100); POTASSIUM SERUM 4.2 MEQ/L (3.5-5.1); SALICYLATE LEVEL 2.7 MG/DL (5.0-30.0); SODIUM LEVEL 141 MEQ/L (136-145); THYROID STIMULATING HORMONE 0.466 uIU/ML (0.358-3.740); TOTAL PROTEIN 6.8 GM/DL (6.4-8.2)
[2017-09-19 14:49] LABS: ACETAMINOPHEN LEVEL < 2.0 UG/ML (10.0-30.0); ETHYL ALCOHOL (ETHANOL) < 0.003 % (0.000-0.010)
[2017-09-19] MEDS ORDERED: MOM 30ML SUSPENSION UDC PO ×2 (16:45→18:30)
[2017-09-19] MEDS ORDERED: MAALOX 30 ML SUSP *UDC PO ×2 (16:45→18:30)
[2017-09-19] MEDS ORDERED: ACETAMINOPHEN TAB 650MG DOSE (2X325MG) PO ×2 (16:45→18:30)
[2017-09-19] MEDS ORDERED: traZODone 50 MG TAB PO (18:30)
[2017-09-19] MEDS: NICOTINE 21MG/24HR 1 EA TRANSDERMAL TD (19:11)
[2017-09-19] MEDS: traZODone 50 MG TAB PO (21:13)
[2017-09-20] MEDS: NICOTINE 21MG/24HR 1 EA TRANSDERMAL TD (08:08)
[2017-09-20] MEDS: OLANZapine ORAL DISINTEGRATING TAB 5MG PO (11:26)
[2017-09-20] MEDS: VENLAFAXINE **XR** 37.5 MG CAPSULE PO (13:51)
[2017-09-20] MEDS: QUEtiapine FUMARATE 50 MG TAB PO ×3 (13:51→21:19)
[2017-09-20] MEDS: traZODone 50 MG TAB PO (22:03)
[2017-09-21] MEDS: VENLAFAXINE **XR** 37.5 MG CAPSULE PO (08:24)
[2017-09-21] MEDS: NICOTINE 21MG/24HR 1 EA TRANSDERMAL TD (08:24)
[2017-09-21] MEDS: QUEtiapine FUMARATE 50 MG TAB PO ×4 (08:24→21:22)
[2017-09-21] MEDS: LORazepam 1 MG TAB PO (08:24)
[2017-09-21] MEDS: traZODone 50 MG TAB PO (21:22)
[2017-09-22] MEDS: QUEtiapine FUMARATE 50 MG TAB PO (08:05)
[2017-09-22] MEDS: LORazepam 1 MG TAB PO (08:05)
[2017-09-22] MEDS: NICOTINE 21MG/24HR 1 EA TRANSDERMAL TD (08:05)
[2017-09-22] MEDS: VENLAFAXINE **XR** 75MG CAPSULE PO (08:05)
== END 2017-09-22 11:40 | disposition home or self-care (01) | DRG 751 ==
LOC: M ED 13:30 → M ED INP 16:33 → M PSY 18:40
DX: F33.2 Major depressive disorder, recurrent severe without psychotic features (principal); F41.0 Panic disorder [episodic paroxysmal anxiety]; F42.9 Obsessive-compulsive disorder, unspecified; F12.10 Cannabis abuse, uncomplicated; F10.10 Alcohol abuse, uncomplicated; F15.10 Other stimulant abuse, uncomplicated; F17.210 Nicotine dependence, cigarettes, uncomplicated

== ENCOUNTER 2017-10-06 19:47 | Emergency (ER) | payer OTHER | END 2017-10-06 21:00 | disposition home or self-care (01) | LOC: M ED 19:47 | DX: K64.4 Residual hemorrhoidal skin tags (principal); J20.8 Acute bronchitis due to other specified organisms; Z87.442 Personal history of urinary calculi; K52.9 Noninfective gastroenteritis and colitis, unspecified; Z79.899 Other long term (current) drug therapy | CPT/HCPCS: 99283 ==

== ENCOUNTER 2017-10-12 00:48 | Emergency (ER) | payer OTHER ==
[2017-10-12] MEDS: KETOROLAC 60 MG/2 ML VIAL (J1885) IM (01:45)
== END 2017-10-12 01:57 | disposition home or self-care (01) ==
LOC: M ED 00:48
DX: Z98.890 Other specified postprocedural states (principal); Z72.0 Tobacco use
CPT/HCPCS: J1885

== ENCOUNTER 2018-06-06 18:56 | Emergency (ER) | payer OTHER, SELFPAY ==
[~2018-06-06] VITALS: Ht 182.9 cm; Wt 91.5 kg
[~2018-06-06 18:56] MED LIST changes: +ACET-716 PO; -ACET30TAB PO; +BACT800T5 PO; +COLA100C5 PO; +MUCI600T37 PO; +NICO21PAT TD; +PROC1CRE5 PR; +QUET1TAB8 PO; +SITZMIS XX; +TESS100C PO; +TRAZ-163 PO; +TRAZO50TA PO; +VENL75CA47 PO; +ZOFR4TAB14 PO; -ZOFR4TAB3 PO
[2018-06-06 18:57] VITALS: BP 131/71
[2018-06-06 21:11] LABS: BASO # 0.1 10^3/uL (0.0-0.2); BASO % 0.6 % (0.0-1.0); EOS # 0.2 10^3/uL (0.0-0.50); EOS % 2.2 % (0.0-3.0); HEMATOCRIT 45.8 % (42.0-52.0); HEMOGLOBIN 14.9 g/dl (13.5-17.5); LYMPH # 2.2 10^3/uL (1.5-6.5); MEAN CORPUSCULAR HEMOGLOBIN 29.6 pg (27.0-33.0); MEAN CORPUSCULAR HGB CONC 32.5 g/dl (32.0-36.5); MEAN CORPUSCULAR VOLUME 91.1 fl (80.0-96.0); MONO # 0.8 10^3/uL (0.0-0.8); MONO % 9.1 % (0.0-5.0); NEUTROPHILS # 5.4 10^3/uL (1.8-7.7); NEUTROPHILS % 62.8 % (36.0-66.0); PLATELET COUNT, AUTOMATED 205 10^3/uL (150-450); RED BLOOD COUNT 5.03 10^6/uL (4.30-6.10); WHITE BLOOD COUNT 8.7 10^3/uL (4.0-10.0)
[2018-06-06 21:38] LABS: ALBUMIN 4.3 GM/DL (3.2-5.2); ALT/SGPT 25 U/L (12-78); BILIRUBIN,DIRECT < 0.1 MG/DL (0.0-0.2); BILIRUBIN,TOTAL 0.3 MG/DL (0.2-1.0); BLOOD UREA NITROGEN 20 MG/DL (7-18); CARBON DIOXIDE LEVEL 27 MEQ/L (21-32); CHLORIDE LEVEL 109 MEQ/L (98-107); GLOMERULAR FILTRATION RATE > 60.0 (>60); GLUCOSE, FASTING 95 MG/DL (70-100); LIPASE 104 U/L (73-393); POTASSIUM SERUM 4.7 MEQ/L (3.5-5.1); SODIUM LEVEL 141 MEQ/L (136-145); TOTAL PROTEIN 6.8 GM/DL (6.4-8.2)
== END 2018-06-06 21:35 | disposition left against medical advice (07) ==
LOC: M ED 18:56
DX: R10.9 Unspecified abdominal pain (principal); Z53.21 Procedure and treatment not carried out due to patient leaving prior to being seen by health care provider

== ENCOUNTER 2018-07-25 18:55 | Inpatient (IN) | payer MEDICAID, OTHER, SELFPAY ==
[~2018-07-25] VITALS: Ht 182.9 cm; Wt 88.5 kg
[2018-07-25 19:58] LABS: HEMATOCRIT 44.2 % (42.0-52.0); MEAN CORPUSCULAR HEMOGLOBIN 29.8 pg (27.0-33.0); MEAN CORPUSCULAR HGB CONC 33.9 g/dl (32.0-36.5); MEAN CORPUSCULAR VOLUME 87.7 fl (80.0-96.0); PLATELET COUNT, AUTOMATED 188 10^3/uL (150-450); RED BLOOD COUNT 5.04 10^6/uL (4.30-6.10); WHITE BLOOD COUNT 5.8 10^3/uL (4.0-10.0)
[2018-07-25 20:30] LABS: ACETAMINOPHEN LEVEL < 2.0 UG/ML (10.0-30.0); ALBUMIN 3.8 GM/DL (3.2-5.2); ALT/SGPT 24 U/L (12-78); AMPHETAMINES LEVEL URINE NEGATIVE (NEGATIVE); BARBITURATES URINE NEGATIVE (NEGATIVE); BENZODIAZEPINES URINE NEGATIVE (NEGATIVE); BILIRUBIN,DIRECT < 0.1 MG/DL (0.0-0.2); BILIRUBIN,TOTAL 0.4 MG/DL (0.2-1.0); BLOOD UREA NITROGEN 20 MG/DL (7-18); CANNABINOIDS URINE POSITIVE (NEGATIVE); CARBON DIOXIDE LEVEL 26 MEQ/L (21-32); CHLORIDE LEVEL 106 MEQ/L (98-107); COCAINE METABOLITE URINE NEGATIVE (NEGATIVE); CREATININE FOR GFR 0.76 MG/DL (0.70-1.30); ETHYL ALCOHOL (ETHANOL) < 0.003 % (0.000-0.010); GLOMERULAR FILTRATION RATE > 60.0 (>60); GLUCOSE, FASTING 89 MG/DL (70-100); METHADONE URINE NEGATIVE (NEGATIVE); OPIATES URINE NEGATIVE (NEGATIVE); PHENCYCLIDINE URINE NEGATIVE (NEGATIVE); POTASSIUM SERUM 4.1 MEQ/L (3.5-5.1); SALICYLATE LEVEL 2.4 MG/DL (5.0-30.0); SODIUM LEVEL 139 MEQ/L (136-145); THYROID STIMULATING HORMONE 0.645 uIU/ML (0.358-3.740); TOTAL PROTEIN 7.1 GM/DL (6.4-8.2)
[2018-07-26] MEDS ORDERED: MOM 30ML SUSPENSION UDC PO PRN (03:15)
[2018-07-26] MEDS ORDERED: ACETAMINOPHEN TAB 650MG DOSE (2X325MG) PO PRN (03:15)
[2018-07-26] MEDS ORDERED: MAALOX 30 ML SUSP *UDC PO PRN (03:15)
[2018-07-26] MEDS ORDERED: OLANZapine ORAL DISINTEGRATING TAB 5MG PO PRN (03:15)
[2018-07-26 04:00] VITALS: BP 117/73
--- NOTE | 2018-07-26 08:21 | REP ---
This x-ray: Two views. History: Cough. Findings: There is a 2.5 cm fullness in the right superior hilar silhouette suggestive of adenopathy or perihilar nodule. This is not apparent on the lateral radiograph. This may be a chronic finding. Lung jackson are otherwise well inflated and clear. Pleural angles are sharp. Heart size is normal. Pulmonary vasculature is not increased. Impression: Adenopathy versus perihilar mass on the right. CT study of the chest with IV contrast recommended. Electronically Signed by Zachary Almeida MD 07/26/2018 08:13 A
--- NOTE | 2018-07-26 12:28 | HPEPDOC ---
General Date of Admission July 26, 2018 at 03:05 Date of Service: July 26, 2018 Attending Physician: EBONY BLANCO MD Chief Complaint The patient is a 22-year-old male admitted with a reason for visit of Unspecified Depressive Disorder. History of Present Illness Patient is a 22-year-old male, past medical history significant for polysubstance abuse, depression, nicotine dependence, asthma, admitted on account of suicidal ideation. On assessment, patient complains of abdominal pain, nausea and vomiting. He denies chills, fever, chest pain, shortness of breath. Home Medications No Active Prescriptions or Reported Meds Allergies Coded Allergies: No Known Allergies (Unverified , 06/06/18) Past Medical History Medical History Asthma Depression Nicotine dependence Polysubstance abuseTHC Surgical History Right hip surgery Family History Father: Muscular dystrophy Siblings: Muscular dystrophy Social History Smokes 2.5 pack per day, rare alcohol intake, positive substance abuse with THC A-FIB/CHADSVASC A-FIB History Current/History of A-Fib/PAF?: No Current PO Anticoag Therapy: No Review of Systems Other systems A 10 point pertinent review of systems was completed, negative except as stated in the history of presenting illness. Physical Examination Other physical findings GENERAL: NAD SKIN : Warm, dry intact HEENT: Atraumatic, normocephalic, PERRL, moist mucous membrane CARDIOVASCULAR: Regular rate and rhythm, S1S2, no JVD, no edema, distal pulses + and palpable RESP: CTAB, no accessory muscle use noted ABDOMEN: BS+ non distended tender with palpation of BLQ MS: no joint deformities NEURO: Alert and oriented x 3, CN2-12 grossly intact PSYCH: no anxiety or agitation, appropriate mood and affect. Vital Signs Vital Signs Date Time Temp Pulse Resp B/P (MAP) Pulse Ox O2 Delivery O2 Flow Rate FiO2 07/26/18 04:00 97.5 53 16 117/73 (88) 99 07/26/18 03:15 Room Air Laboratory Data Labs 24H Laboratory Tests 2 07/25/18 19:38: Nucleated Red Blood Cells % (auto) 0.0, Anion Gap 7L, Glomerular Filtration Rate > 60.0, Calcium Level 9.0, Aspartate Amino Transf (AST/SGOT) 18, Alanine Aminotransferase (ALT/SGPT) 24, Alkaline Phosphatase 62, Total Bilirubin 0.4, Direct Bilirubin < 0.1, Total Protein 7.1, Albumin 3.8, Albumin/Globulin Ratio 1.15, Thyroid Stimulating Hormone (TSH) 0.645, Salicylates Level 2.4L, Urine Amphetamines Screen NEGATIVE, Urine Benzodiazepines Screen NEGATIVE, Urine Opiates Screen NEGATIVE, Urine Methadone Screen NEGATIVE, Acetaminophen Level < 2.0L, Urine Barbiturates Screen NEGATIVE, Urine Phencyclidine Screen NEGATIVE, Urine Cocaine Metabolite Screen NEGATIVE, Urine Cannabinoids Screen POSITIVEH, Ethyl Alcohol Level < 0.003 CBC/BMP Laboratory Tests 07/25/18 19:38 Red Blood Count 5.04, Mean Corpuscular Volume 87.7, Mean Corpuscular Hemoglobin 29.8, Mean Corpuscular Hemoglobin Concent 33.9, Red Cell Distribution Width 12.8 Assessment/Plan Asthma -Patient states he has a flare usually once a year and at this time is stable Abdominal pain -With nausea and vomiting -Tenderness with palpation -Discussed with patient could be due to THC use -We'll obtain CT abdomen and pelvis to further evaluate -zofran as needed for nausea Polysubstance abuse -Patient has been counseled. Discussed with patient Suicidal ideation/depression -Management by primary team DVT prophylaxis -Not indicated at this time, patient is ambulatory Plan / VTE VTE Prophylaxis Ordered?: No VTE Exclusion Mechanical Proph: Low Risk for VTE EILEEN MITTAL July 26, 2018 12:28
[2018-07-26] MEDS: NICOTINE 21MG/24HR 1 EA TRANSDERMAL TD PRN (13:14)
[2018-07-26] MEDS: GASTROGRAFIN SOLUTION 30ML PO SCH ×2 (13:40→14:12)
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
[2018-07-26] MEDS ORDERED: FLUoxetine 20 MG CAP PO ONE (14:00)
[2018-07-26] MEDS ORDERED: HALOPERIDOL 5 MG TAB PO ONE (14:00)
[2018-07-26] MEDS ORDERED: hydrOXYzine 50 MG TAB PO PRN (14:00)
[2018-07-26] MEDS ORDERED: ISOVUE-370 76% 100ML VIAL (Q9967) As Ordered ONE (14:09)
--- NOTE | 2018-07-26 15:21 | REP ---
Clinical: Generalized abdominal pain. Technique: Axial contrast enhanced images from the lung bases to the pubic symphysis using oral (per protocol) and 100 ml Isovue 370 intravenous contrast material with coronal and sagittal re-formations. Comparison: 05/14/2016 Findings: Lung bases are clear. Visualized heart and pericardium normal. Liver, spleen, pancreas, gallbladder, bilateral adrenal glands and kidneys are normal. The enteric system including stomach, small, and large bowel is without obstruction or acute inflammatory process. Normal terminal ileum and appendix identified in the right lower quadrant. Pelvis demonstrates normal bladder and age appropriate prostate/seminal vesicles. No pelvic fluid or ascites. No free air. No adenopathy. Abdominal aorta and vasculature normal. Musculoskeletal structures are intact. Impression: Normal contrast enhanced CT of the abdomen and pelvis. No acute abdominopelvic pathology appreciated. Electronically Signed by Macario Thompson MD 07/26/2018 03:13 P
[2018-07-26 18:02] VITALS: BP 130/69
[2018-07-26] MEDS: HALOPERIDOL 5 MG TAB PO SCH (22:04)
[2018-07-27 06:54] VITALS: BP 138/72
[2018-07-27] MEDS: FLUoxetine 20 MG CAP PO SCH (09:03)
[2018-07-27] MEDS: HALOPERIDOL 5 MG TAB PO SCH ×3 (09:03→21:00)
[2018-07-27] MEDS: NICOTINE 21MG/24HR 1 EA TRANSDERMAL TD PRN (09:03)
--- NOTE | 2018-07-27 11:03 | MHIPNPDOC ---
[facility] Progress Note Progress Note DATE OF SERVICE: 07/27/18 HISTORY: Patient is a 22 -year-old , male, with a history of depression, anxiety, substance abuse, previous admission [facility] 09/20/2017 for HI and depression who present to ED with his at first endorsing brown/black diarrhea for 1.5mos, no solid stools, and possible dx Crohn's disease in ED. Has stomach pain when eats in meet. Pt then began endorsing in ED passive SI with hopes to "get pneumonia and have it kill me in my sleep" b/c "I don't want to do it myself" and HI, nonspecific, to punch someone that upsets him. In ED he endorsed mood swings, anger, low self esteem, loneliness, helplessness, hopelessness. Per ED he appeared fatigued, flat, with poor eye contact when seen there. Pt report by Ed to be noncompliant on psych meds and with outpatient treatment for the past 6months. VITAL SIGNS: See below. NEW TEST RESULTS: See below. CURRENT MEDICATIONS: See below. MENTAL STATUS EXAMINATION: Patient is a 22-year old male, who is here for anger/irritability, anxiety, passive SI Speech: Is reg rate/rhythm/volume Language skills are good Thought processes including: linear, logical, future orient to getting back to work so doesn't have to catch up on work when he leaves. Thought content: denies SI/HI, anger. Abstract reasoning, and computation: intact. Description of associations: appropriate Description of abnormal or psychotic thoughts: denies hallucinations, delusions Judgment: good Insight:poor Orientation: x3 Recent and remote memory: intact Attention span and concentration: good Language: appropriate Fund of knowledge:average Mood: "up-beat" Affect: congruent, euthymic DIAGNOSES: 1. Major depression, recurrent, with history of psychosis. 2. Panic/anxiety disorder. 3. Obsessive-compulsive disorder. 4. Cannabis use disorder. ASSESSMENT::Pt seen and states that his mood, anxiety, and anger are all improved with that start of haldol which he feels is beneficial, denies side effects, and likes. Tolerating and finding prozac beneficial too. Less OCD thoughts/urges. States he slept well last night. Feels he is tolerating his medications and they're beneficial. He is attending groups and finding them helpful. He denies SI/HI, hallucinations, delusions. Pt feels safe here. MANAGEMENT PLAN: continue plan, d/c planning for tomorrow Medications: haldol 5mg tid prozac 20mg daily vistaril 50mg q6hr prn anxiety TIME SPENT: 30 minutes. Vital Signs Vital Signs Date Time Temp Pulse Resp B/P (MAP) Pulse Ox O2 Delivery O2 Flow Rate FiO2 07/27/18 06:54 98.2 50 16 138/72 (94) 07/26/18 04:00 99 07/26/18 03:15 Room Air Current Medications Current Medications Acetaminophen (Tylenol Tab) 650 mg Q6HP PRN PO HEADACHE or DISCOMFORT; Start 07/26/18 at 03:15 Al Hydrox/Mg Hydrox/Simethicone (Mylanta) 30 ml Q4HP PRN PO HEARTBURN/INDIGESTION; Start 07/26/18 at 03:15 Diatrizoate Meglum/ Diatrizoate Sod (Gastrografin) 10 ml Q30M PO Last administered on 07/26/18at 14:12; Start 07/26/18 at 13:15; Stop 07/26/18 at 13:46; Status DC Fluoxetine HCl (PROzac) 20 mg DAILY PO Last administered on 07/27/18at 09:03; Start 07/27/18 at 09:00 Haloperidol (Haldol) 5 mg TID PO Last administered on 07/27/18at 09:03; Start 07/26/18 at 21:00 Home Med (Med Rec Complete!) ASDIRECTED XX ; Start 07/26/18 at 03:00; Stop 07/26/18 at 03:00; Status DC Hydroxyzine HCl (Atarax) 50 mg Q4HP PRN PO ANXIETY/AGITATION; Start 07/26/18 at 14:00 Magnesium Hydroxide (Milk Of Magnesia) 30 ml DAILYPRN PRN PO CONSTIPATION; Sta rt 07/26/18 at 03:15 Nicotine (Nicoderm Cq 21mg) 1 patch DAILY PRN TD Craving Last administered on 07/27/18at 09:03; Start 07/26/18 at 03:15 Olanzapine (ZyPREXA ZYDIS) 5 mg Q4HP PRN PO AGITATION; Start 07/26/18 at 03:15 Allergies Coded Allergies: No Known Allergies (Unverified , 06/06/18) KEM AVENDANO DO July 27, 2018 11:03
[2018-07-27 11:39] VITALS: BP 133/69
[2018-07-27 18:03] VITALS: BP 145/65
[2018-07-28 06:33] VITALS: BP 136/66
[2018-07-28] MEDS: FLUoxetine 20 MG CAP PO SCH (08:11)
[2018-07-28] MEDS: HALOPERIDOL 5 MG TAB PO SCH (08:11)
[2018-07-28] MEDS ORDERED: HALO5TA PO (08:43)
[2018-07-28] MEDS ORDERED: HYDRO50TAB PO (08:43)
[2018-07-28] MEDS ORDERED: FLUO20CA19 PO (08:43)
--- NOTE | 2018-07-28 08:43 | MHDSPDOC ---
[facility] Discharge Summary Discharge Summary DATE OF ADMISSION: July 26, 2018 at 3:05 am DATE OF DISCHARGE: July 28, 2018 DISCHARGE DIAGNOSES: 1. Major depression, recurrent, with history of psychosis. 2. Panic/anxiety disorder. 3. Obsessive-compulsive disorder. 4. Cannabis use disorder. REASON FOR ADMISSION: Patient is a 22 -year-old , male, with a history of depression, anxiety, substance abuse, previous admission [facility] 09/20/2017 for HI and depression who present to ED with his at first endorsing brown/black diarrhea for 1.5mos, no solid stools, and possible dx Crohn's disease in ED. Has stomach pain when eats in meet. Pt then began endorsing in ED passive SI with hopes to "get pneumonia and have it kill me in my sleep" b/c "I don't want to do it myself" and HI, nonspecific, to punch someone that upsets him. In ED he endorsed mood swings, anger, low self esteem, loneliness, helplessness, hopelessness. Per ED he appeared fatigued, flat, with poor eye contact when seen there. Pt report by Ed to be noncompliant on psych meds and with outpatient treatment for the past 6months. CONSULTANTS INVOLVED: none TREATMENT AND PROGRESS ON THE UNIT : Pt was admitted to [facility], seen for psychiatric assessment and was started on Haldol 5mg tid for anxiety/agitation/OCD and prozac 20mg daily for depression. He was provided vistaril 50mg q6hr prn anxiety. Pt found his medications beneficial and tolerated them well. He attended groups daily during his stay. His symptoms improved with treatment. On day of discharge he denied depression, anxiety, insomnia, SI/HI, hallucinations, delusions. He was discharged home after family meeting with his with follow-up at [facility]. He felt safe for discharge. DISCHARGE ASSESSMENT: Pt seen and states that his mood, anxiety, and anger are all improved with that start of haldol which he feels is beneficial, denies side effects, and likes. Tolerating and finding prozac beneficial too. Less OCD thoughts/urges. He appears euthymic, bright, and calm. States he slept well last night. Feels he is tolerating his medications and they're beneficial. He is attending groups and finding them helpful. He denies depression, anxiety, insomnia, SI/HI, hallucinations, delusions. Pt feels safe here. MENTAL STATUS EXAMINATION ON DISCHARGE: Patient is a 22-year old male, who is here for anger/irritability, anxiety, passive SI all improved currently Speech: Is reg rate/rhythm/volume Language skills are good Thought processes including: linear, logical, future orient to getting back to work so doesn't have to catch up on work when he leaves. Thought content: denies SI/HI, denies anger/OCD thoughts and urges. Abstract reasoning, and computation: intact. Description of associations: appropriate Description of abnormal or psychotic thoughts: denies hallucinations, delusions Judgment: good Insight:poor Orientation: x3 Recent and remote memory: intact Attention span and concentration: good Language: appropriate Fund of knowledge:average Mood: "great" Affect: congruent, euthymic, bright MEDICATIONS ON DISCHARGE: haldol 5mg tid prozac 20mg daily vistaril 50mg q6hr prn anxiety PLAN/FOLLOWUP ARRANGEMENTS: D/c home with follow-up at [facility]. The amount of time spent in the coordination of care for this patient was approximately 30 minutes. Vital Signs/I&Os Vital Signs Date Time Temp Pulse Resp B/P (MAP) Pulse Ox O2 Delivery O2 Flow Rate FiO2 07/28/18 06:33 97.7 51 16 136/66 (89) 07/26/18 04:00 99 07/26/18 03:15 Room Air Medications No Active Prescriptions or Reported Meds Allergies Coded Allergies: No Known Allergies (Unverified , 06/06/18) KEM AVENDANO DO July 28, 2018 8:43 am
[2018-07-28] MEDS ORDERED: BENZ2TAB5 PO ×2 (22:10→22:39)
== END 2018-07-28 12:05 | disposition home or self-care (01) | DRG 751 ==
LOC: M ED 18:55 → M ED INP 07-26 03:05 → M PSY 07-26 04:02
PROVIDERS: ADMIT Psychiatry & Neurology Psychiatry; ATTEND Psychiatry & Neurology Psychiatry
DX: F33.9 Major depressive disorder, recurrent, unspecified (principal); Z91.14 Patient's other noncompliance with medication regimen; F41.0 Panic disorder [episodic paroxysmal anxiety]; Z91.19 Patient's noncompliance with other medical treatment and regimen; F12.10 Cannabis abuse, uncomplicated; F42.9 Obsessive-compulsive disorder, unspecified; F10.10 Alcohol abuse, uncomplicated; F17.200 Nicotine dependence, unspecified, uncomplicated; J45.909 Unspecified asthma, uncomplicated

== ENCOUNTER 2018-07-28 13:19 | Emergency (ER) | payer MEDICAID, SELFPAY ==
[~2018-07-28 13:19] MED LIST changes: +FLUO20CA19 PO; +HALO5TA PO; +HYDRO50TAB PO; +TRAZ1TAB10 PO; -TRAZO50TA PO
[2018-07-28] MEDS ORDERED: NS 1,000 ML IV ONE (13:30)
[2018-07-28] MEDS ORDERED: diphenhydrAMINE INJ 50MG/ML VIAL (J1200) IV ONE (13:30)
[2018-07-28] MEDS ORDERED: BENZTROPINE MESYLATE 2MG/2ML VIAL IM ONE (14:30)
[2018-07-28 16:30] VITALS: BP 126/62
[2018-07-28] MEDS ORDERED: BENZ2TAB5 PO ×2 (22:10→22:39)
== END 2018-07-28 16:48 | disposition home or self-care (01) ==
LOC: EDSEX 13:19 → EDBD 13:19 → M ED 13:19
DX: G24.02 Drug induced acute dystonia (principal); F32.9 Major depressive disorder, single episode, unspecified; F41.9 Anxiety disorder, unspecified; F42.9 Obsessive-compulsive disorder, unspecified; Z79.899 Other long term (current) drug therapy
CPT/HCPCS: 96361; 96372; 96374; 99284; J1200

== ENCOUNTER 2018-07-28 20:36 | Emergency (ER) | payer MEDICAID, SELFPAY ==
[~2018-07-28] VITALS: Ht 182.9 cm; Wt 90.9 kg
[2018-07-28] MEDS ORDERED: diphenhydrAMINE INJ 50MG/ML VIAL (J1200) IV STA (20:47)
[2018-07-28] MEDS ORDERED: dexameTHASONE 20 MG/5 ML VIAL (J1100) IV ONE (21:00)
[2018-07-28] MEDS ORDERED: NS 1,000 ML IV ONE (21:30)
[2018-07-28] MEDS ORDERED: BENZ2TAB5 PO ×2 (22:10→22:39)
[2018-07-28] MEDS ORDERED: BENZTROPINE MESYLATE 2MG/2ML VIAL IM ONE (22:15)
[2018-07-28 22:30] VITALS: BP 133/70
== END 2018-07-28 22:53 | disposition home or self-care (01) ==
LOC: M ED 20:36
DX: G24.02 Drug induced acute dystonia (principal); F63.9 Impulse disorder, unspecified; R41.89 Other symptoms and signs involving cognitive functions and awareness; Z79.899 Other long term (current) drug therapy; Z88.8 Allergy status to other drugs, medicaments and biological substances; F17.210 Nicotine dependence, cigarettes, uncomplicated
CPT/HCPCS: 36415; 96361; 96372; 96374; 99284; J1200

== ENCOUNTER 2018-09-08 20:18 | Emergency (ER) | payer MEDICAID ==
[~2018-09-08] VITALS: Ht 182.9 cm; Wt 93.2 kg
[2018-09-08 20:18] VITALS: BP 128/70
[~2018-09-08 20:18] MED LIST changes: +BENZ2TAB5 PO
[2018-09-08] MEDS ORDERED: OMEP-221 (20:26)
[2018-09-08] MEDS ORDERED: BENA25TA5 (20:26)
[2018-09-08] MEDS ORDERED: ESCI10TA2 (20:26)
[2018-09-08] MEDS ORDERED: AUGM875T28 PO (22:52)
[2018-09-08] MEDS ORDERED: IBUP-1022 PO (22:52)
[2018-09-08] MEDS ORDERED: AUGMENTIN 875 MG TAB PO ONE (23:00)
[2018-09-08] MEDS ORDERED: IBUPROFEN 600 MG TAB PO ONE (23:00)
== END 2018-09-08 23:04 | disposition home or self-care (01) ==
LOC: M ED 20:18
DX: K12.2 Cellulitis and abscess of mouth (principal); Z79.899 Other long term (current) drug therapy; Z88.8 Allergy status to other drugs, medicaments and biological substances; F17.210 Nicotine dependence, cigarettes, uncomplicated

== ENCOUNTER 2018-09-26 19:48 | Emergency (ER) | payer MEDICAID ==
[~2018-09-26] VITALS: Ht 182.9 cm; Wt 95.5 kg
[~2018-09-26 19:48] MED LIST changes: +AUGM875T28 PO; +BENA25TA5; +ESCI10TA2; +HYDR1TAB33 PO; -HYDRO50TAB PO; +IBUP-1022 PO; +INDO-16 PO; -INDO25CA PO; +OMEP-221
[2018-09-26] MEDS ORDERED: AMPICILLIN SOD/SULBACTAM SOD 3 GM in D5W MINI-BAG PLUS 100 ML IV ONE (20:15)
[2018-09-26] MEDS ORDERED: MORPHINE 4 MG/ML 1ML VIAL/SYRINGE (J2270) IV ONE (20:15)
[2018-09-26] MEDS ORDERED: TETANUS/DIPHTHERIA TOX ADSORB ADULT 0.5ML SYR/VIAL (90714) IM ONE (20:15)
[2018-09-26] MEDS ORDERED: LIDOCAINE W/EPINEPHRINE 1% 20ML VIAL SC ONE (21:30)
[2018-09-26] MEDS ORDERED: AUGM500T34 PO (21:34)
[2018-09-26 21:49] VITALS: BP 116/59
--- NOTE | 2018-09-27 07:43 | REP ---
Clinical: Foreign body. Technique: PA and lateral. Comparison: None. Findings: Lateral view at the level of the BB marker demonstrates a 2.5 mm density in the subcutaneous tissue which is not definitively appreciated on the AP view possibly due to its superimposition over the radial or ulnar shaft. The osseous structures are intact and there is no evidence for acute fracture dislocation. Impression: Small 2.5 mm density consistent with foreign body underlying the BB marker identified on lateral radiograph. Electronically Signed by Macario Thompson MD 09/27/2018 07:34 A
--- NOTE | 2018-10-02 20:40 | ED PDOC ---
Post-Departure Follow-Up fanta hernández faxed formal report of left forerm film for fu mariellag Doris Lazo MD Oct 02, 2018 20:40
== END 2018-09-26 21:51 | disposition home or self-care (01) ==
LOC: M ED 19:48
DX: S51.842A Puncture wound with foreign body of left forearm, initial encounter (principal); W29.4XXA Contact with nail gun, initial encounter; Y92.098 Other place in other non-institutional residence as the place of occurrence of the external cause; K21.9 Gastro-esophageal reflux disease without esophagitis; F91.9 Conduct disorder, unspecified; Z88.8 Allergy status to other drugs, medicaments and biological substances; Z79.899 Other long term (current) drug therapy
CPT/HCPCS: 73090; 90471; 90714; 96365; 96366; 96375; 99284; J2270

== ENCOUNTER 2019-12-29 21:18 | Emergency (ER) | payer OTHER ==
[~2019-12-29] VITALS: Ht 182.9 cm; Wt 88.9 kg
[~2019-12-29 21:18] MED LIST changes: +AUGM500T34 PO; -ESCI10TA2; +ESCI10TA2 PO; -FLUO20CA19 PO; +FLUO20CA22 PO; -OMEP-221; +OMEP-221 PO; +QUET100T2 PO; -QUET1TAB8 PO; -TRAZ-163 PO; +TRAZ-257 PO
[2019-12-29 21:19] VITALS: BP 134/72
[2019-12-29] MEDS ORDERED: IBUP-1022 PO (22:28)
[2019-12-29] MEDS ORDERED: PENI500T PO (22:28)
[2019-12-29] MEDS ORDERED: NORCO 5/325MG TABLET (BULK FOR ED) PO ONE (22:30)
[2019-12-29] MEDS ORDERED: PENICILLIN V POTASSIUM 500 MG TAB PO ONE (22:30)
== END 2019-12-29 22:46 | disposition home or self-care (01) ==
LOC: M ED 21:18
DX: K08.89 Other specified disorders of teeth and supporting structures (principal); K02.9 Dental caries, unspecified; R68.84 Jaw pain; F17.200 Nicotine dependence, unspecified, uncomplicated; R51.9 Headache, unspecified; J45.909 Unspecified asthma, uncomplicated; Z88.8 Allergy status to other drugs, medicaments and biological substances; Z79.899 Other long term (current) drug therapy

== ENCOUNTER 2020-01-05 17:21 | Emergency (ER) | payer OTHER ==
[~2020-01-05] VITALS: Ht 182.9 cm; Wt 89.9 kg
[~2020-01-05 17:21] MED LIST changes: +PENI500T PO
[2020-01-05] MEDS ORDERED: CLIN300C5 PO (17:29)
[2020-01-05] MEDS ORDERED: TRAM50TA2 PO (17:29)
[2020-01-05] MEDS ORDERED: PSEUDOEPHEDRINE 30 MG TAB PO STA (18:29)
[2020-01-05] MEDS ORDERED: CETIRIZINE (ZyrTEC) 10 MG TAB PO ONE (18:30)
[2020-01-05] MEDS ORDERED: PERCOCET 5MG/325MG TAB PO ONE (18:45)
[2020-01-05 18:51] LABS: BASO # 0.1 10^3/uL (0.0-0.2); BASO % 0.7 % (0.0-1.0); EOS # 0.2 10^3/uL (0.0-0.5); HEMATOCRIT 44.6 % (42.0-52.0); HEMOGLOBIN 14.4 g/dl (13.5-17.5); LYMPH # 1.8 10^3/uL (1.5-5.0); MEAN CORPUSCULAR HEMOGLOBIN 28.8 pg (27.0-33.0); MEAN CORPUSCULAR HGB CONC 32.3 g/dl (32.0-36.5); MEAN CORPUSCULAR VOLUME 89.2 fl (80.0-96.0); MONO # 0.8 10^3/uL (0.0-0.8); MONO % 9.5 % (0.0-5.0); NEUTROPHILS % 67.5 % (36.0-66.0); PLATELET COUNT, AUTOMATED 214 10^3/uL (150-450); WHITE BLOOD COUNT 8.9 10^3/uL (4.0-10.0)
[2020-01-05 19:10] LABS: ERYTHROCYTE SEDIMENTATION RATE 3 mm/hr (0-15)
--- NOTE | 2020-01-05 19:10 | REP ---
INDICATION: R maxillary sinus pain, abx no help. COMPARISON: None TECHNIQUE: Four views FINDINGS: Nasal septum is midline. Frontal, ethmoid, maxillary and sphenoid sinuses show no mucosal thickening, air-fluid levels or opacification. Nasopharyngeal airway is widely patent. Mastoids were symmetric and normal. IMPRESSION: 1. No sinus mucosal thickening or air-fluid levels in any of the visualized sinuses, and noting your particular interest in the right maxillary region. Negative exam. <Electronically signed by Arnav Villavicencio > 01/05/20 [id number]
[2020-01-05] MEDS ORDERED: HM S0.65 NARES (19:21)
[2020-01-05] MEDS ORDERED: CETI10CH PO (19:21)
[2020-01-05 19:29] VITALS: BP 114/61
== END 2020-01-05 19:31 | disposition home or self-care (01) ==
LOC: M ED 17:21
DX: R68.84 Jaw pain (principal); J45.909 Unspecified asthma, uncomplicated; F32.9 Major depressive disorder, single episode, unspecified; F17.200 Nicotine dependence, unspecified, uncomplicated; Z88.8 Allergy status to other drugs, medicaments and biological substances; Z87.442 Personal history of urinary calculi; Z79.899 Other long term (current) drug therapy

== ENCOUNTER 2020-04-13 20:01 | Emergency (ER) | payer OTHER ==
[~2020-04-13] VITALS: Ht 182.9 cm; Wt 88.5 kg
[~2020-04-13 20:01] MED LIST changes: +CETI10CH PO; +CLIN300C6 PO; +ESCI10TA16 PO; -ESCI10TA2 PO; +HM S0.65 NARES; +TRAM50TA2 PO
--- OUTSIDE RECORDS SUMMARY | 2020-04-13 20:07 | CCD ---
Author Author [facility] Organization [facility] Address Unknown Phone Unavailable Care Team Providers Care Test Inspection Engineer Name Role Phone PETROFF, RASTA PA Unavailable Unavailable PETROFF, RASTA PA Unavailable Unavailable PETROFF, RASTA PA Unavailable Unavailable PETROFF, RASTA PA Unavailable Unavailable PETROFF, RASTA PA Unavailable Unavailable PETROFF, RASTA PA Unavailable Unavailable PETROFF, RASTA PA Unavailable Unavailable PETROFF, RASTA PA Unavailable Unavailable SYMENOW, G CHRISTOPHER PA Unavailable Unavailable SYMENOW, G CHRISTOPHER PA Unavailable Unavailable SYMENOW, G CHRISTOPHER PA Unavailable Unavailable SYMENOW, G CHRISTOPHER PA Unavailable Unavailable SYMENOW, G CHRISTOPHER PA Unavailable Unavailable SYMENOW, G CHRISTOPHER PA Unavailable Unavailable SYMENOW, G CHRISTOPHER PA Unavailable Unavailable SYMENOW, G CHRISTOPHER PA Unavailable Unavailable SYMENOW, G CHRISTOPHER PA Unavailable Unavailable SYMENOW, G CHRISTOPHER PA Unavailable Unavailable SYMENOW, G CHRISTOPHER PA Unavailable Unavailable SYMENOW, G CHRISTOPHER PA Unavailable Unavailable SYMENOW, G CHRISTOPHER PA Unavailable Unavailable SYMENOW, G CHRISTOPHER PA Unavailable Unavailable SYMENOW, G CHRISTOPHER PA Unavailable Unavailable SYMENOW, G CHRISTOPHER PA Unavailable Unavailable SYMENOW, G CHRISTOPHER PA Unavailable Unavailable Galvan, W Rey RPA-C Unavailable Unavailable Galvan, W Rey RPA-C Unavailable Unavailable Galvan, W Rey RPA-C Unavailable Unavailable Galvan, W Rey RPA-C Unavailable Unavailable Galvan, W Rey RPA-C Unavailable Unavailable Galvan, W Rey RPA-C Unavailable Unavailable Galvan, W Rey RPA-C Unavailable Unavailable Galvan, W Rey RPA-C Unavailable Unavailable Galvan, W Rey RPA-C Unavailable Unavailable Galvan, W Rey RPA-C Unavailable Unavailable Galvan, W Rey RPA-C Unavailable Unavailable Galvan, W Rey RPA-C Unavailable Unavailable Galvan, W Rey RPA-C Unavailable Unavailable Galvan, W Rey RPA-C Unavailable Unavailable Galvan, W Rey RPA-C Unavailable Unavailable Galvan, W Rey RPA-C Unavailable Unavailable HOLLIS, Bryanna BUNN PA Unavailable Unavailable HOLLIS, Bryanna BUNN PA Unavailable Unavailable HOLLIS, Bryanna BUNN PA Unavailable Unavailable HOLLIS, L ECTOR PA Unavailable Unavailable HOLLIS, L ECTOR PA Unavailable Unavailable HOLLIS, L ECTOR PA Unavailable Unavailable HOLLIS, L ECTOR PA Unavailable Unavailable HOLLIS, L ECTOR PA Unavailable Unavailable HOLLIS, L ECTOR PA Unavailable Unavailable HOLLIS, L ECTOR PA Unavailable Unavailable HOLLIS, L ECTOR PA Unavailable Unavailable HOLLIS, L ECTOR PA Unavailable Unavailable HOLLIS, L ECTOR PA Unavailable Unavailable HOLLIS, L ECTOR PA Unavailable Unavailable HOLLIS, L ECTOR PA Unavailable Unavailable HOLLIS, L ECTOR PA Unavailable Unavailable HOLLIS, L ECTOR PA Unavailable Unavailable HOLLIS, L ECTOR PA Unavailable Unavailable HOLLIS, L ECTOR PA Unavailable Unavailable [facility], MJAIN Unavailable Unavailable FIERRO, QUE MARY RPA-C Unavailable Unavailable FIERRO, QUE MARY RPA-C Unavailable Unavailable FIERRO, QUE MARY RPA-C Unavailable Unavailable FIERRO, QUE MARY RPA-C Unavailable Unavailable FIERRO, QUE MARY RPA-C Unavailable Unavailable FIERRO, QUE MARY RPA-C Unavailable Unavailable FIERRO, QUE MARY RPA-C Unavailable Unavailable FIERRO, QUE MARY RPA-C Unavailable Unavailable FIERRO, QUE MARY RPA-C Unavailable Unavailable FIERRO, QUE MARY RPA-C Unavailable Unavailable FIERRO, QUE MARY RPA-C Unavailable Unavailable FIERRO, QUE MARY RPA-C Unavailable Unavailable FIERRO, QUE MARY RPA-C Unavailable Unavailable FIERRO, QUE MARY RPA-C Unavailable Unavailable FIERRO, QUE MARY RPA-C Unavailable Unavailable FIERRO, QUE MARY RPA-C Unavailable Unavailable FIERRO, QUE MARY RPA-C Unavailable Unavailable FIERRO, QUE MARY RPA-C Unavailable Unavailable FIERRO, QUE MARY RPA-C Unavailable Unavailable FIERRO, QUE MARY RPA-C Unavailable Unavailable FIERRO, QUE MARY RPA-C Unavailable Unavailable FIERRO, QUE MARY RPA-C Unavailable Unavailable FIERRO, QUE MARY RPA-C Unavailable Unavailable FIERRO, QUE MARY RPA-C Unavailable Unavailable FIERRO, QUE MARY RPA-C Unavailable Unavailable FIERRO, QUE MARY RPA-C Unavailable Unavailable FIERRO, QUE MARY RPA-C Unavailable Unavailable FIERRO, QUE MARY RPA-C Unavailable Unavailable FIERRO, QUE MARY RPA-C Unavailable Unavailable FIERRO, QUE MARY RPA-C Unavailable Unavailable FIERRO, QUE MARY RPA-C Unavailable Unavailable FIERRO, QUE MARY RPA-C Unavailable Unavailable FIERRO, QUE MARY RPA-C Unavailable Unavailable FIERRO, QUE MARY RPA-C Unavailable Unavailable FIERRO, QUE MARY RPA-C Unavailable Unavailable FIERRO, QUE MARY RPA-C Unavailable Unavailable FIERRO, QUE MARY RPA-C Unavailable Unavailable FIERRO, QUE MARY RPA-C Unavailable Unavailable FIERRO, QUE MARY RPA-C Unavailable Unavailable Roberts, Benja PA Unavailable Unavailable Roberts, Benja PA Unavailable Unavailable Roberts, Benja PA Unavailable Unavailable Roberts, Benja PA Unavailable Unavailable Roberts, Benja PA Unavailable Unavailable Roberts, Benja PA Unavailable Unavailable Roberts, Benja PA Unavailable Unavailable Roberts, Benja PA Unavailable Unavailable Roberts, Benja PA Unavailable Unavailable Roberts, Benja PA Unavailable Unavailable Roberts, Benja PA Unavailable Unavailable Roberts, Benja PA Unavailable Unavailable LARS, STEPHANIE JUAN PA Unavailable Unavailable LARS, STEPHANIE JUAN PA Unavailable Unavailable LARS, STEPHANIE JUAN PA Unavailable Unavailable LARS, STEPHANIE JUAN PA Unavailable Unavailable LARS, STEPHANIE JUAN PA Unavailable Unavailable LARS, STEPHANIE JUAN PA Unavailable Unavailable LARS, STEPHANIE JUAN PA Unavailable Unavailable LARS, STEPHANIE JUAN PA Unavailable Unavailable LARS, STEPHANIE JUAN PA Unavailable Unavailable LARS, STEPHANIE JUAN PA Unavailable Unavailable LARS, STEPHANIE JUAN PA Unavailable Unavailable LARS, STEPHANIE JUAN PA Unavailable Unavailable LARS, STEPHANIE JUAN PA Unavailable Unavailable LARS, STEPHANIE JUAN PA Unavailable Unavailable LARS, STEPHANIE JUAN PA Unavailable Unavailable LARS, STEPHANIE JUAN PA Unavailable Unavailable LARS, STEPHANIE JUAN PA Unavailable Unavailable LARS, STEPHANIE JUAN PA Unavailable Unavailable LARS, STEPHANIE JUAN PA Unavailable Unavailable LARS, STEPHANIE JUAN PA Unavailable Unavailable LARS, STEPHANIE JUAN PA Unavailable Unavailable JEWELL SR, NA CHARLTON MD Unavailable Unavailable JEWELL SR, NA CHARLTON MD Unavailable Unavailable JEWELL SR, NA CHARLTON MD Unavailable Unavailable JEWELL SR, NA CHARLTON MD Unavailable Unavailable JEWELL SR, NA CHARLTON MD Unavailable Unavailable JEWELL SR, NA CHARLTON MD Unavailable Unavailable JEWELL SR, NA CHARLTON MD Unavailable Unavailable JEWELL SR, NA CHARLTON MD Unavailable Unavailable JEWELL SR, NA CHARLTON MD Unavailable Unavailable JEWELL SR, NA CHARLTON MD Unavailable Unavailable JEWELL SR, NA CHARLTON MD Unavailable Unavailable JEWELL SR, NA CHARLTON MD Unavailable Unavailable JEWELL SR, NA CHARLTON MD Unavailable Unavailable JEWELL SR, NA CHARLTON MD Unavailable Unavailable JEWELL SR, NA CHARLTON MD Unavailable Unavailable JEWELL SR, NA CHARLTON MD Unavailable Unavailable JEWELL SR, NA CHARLTON MD Unavailable Unavailable JEWELL SR, NA CHARLTON MD Unavailable Unavailable JEWELL SR, NA CHARLTON MD Unavailable Unavailable JEWELL SR, NA CHARLTON MD Unavailable Unavailable JEWELL SR, NA CHARLTON MD Unavailable Unavailable JEWELL SR, NA CHARLTON MD Unavailable Unavailable JEWELL SR, NA CHARLTON MD Unavailable Unavailable JEWELL SR, NA CHARLTON MD Unavailable Unavailable JEWELL SR, NA CHARLTON MD Unavailable Unavailable JEWELL SR, NA CHARLTON MD Unavailable Unavailable JEWELL SR, NA CHARLTON MD Unavailable Unavailable JEWELL SR, NA CHARLTON MD Unavailable Unavailable JEWELL SR, NA CHARLTON MD Unavailable Unavailable JEWELL SR, NA CHARLTON MD Unavailable Unavailable JEWELL SR, NA CHARLTON MD Unavailable Unavailable JEWELL SR, NA CHARLTON MD Unavailable Unavailable JEWELL SR, NA CHARLTON MD Unavailable Unavailable JEWELL SR, NA CHARLTON MD Unavailable Unavailable JEWELL SR, NA CHARLTON MD Unavailable Unavailable JEWELL SR, NA CHARLTON MD Unavailable Unavailable JEWELL SR, NA CHARLTON MD Unavailable Unavailable JEWELL SR, NA CHARLTON MD Unavailable Unavailable JEWELL SR, NA CHARLTON MD Unavailable Unavailable JEWELL SR, NA CHARLTON MD Unavailable Unavailable JEWELL SR, NA CHARLTON MD Unavailable Unavailable JEWELL SR, NA CHARLTON MD Unavailable Unavailable JEWELL SR, NA CHARLTON MD Unavailable Unavailable JEWELL SR, NA CHARLTON MD Unavailable Unavailable JEWELL SR, NA CHARLTON MD Unavailable Unavailable JEWELL SR, NA CHARLTON MD Unavailable Unavailable JEWELL SR, NA CHARLTON MD Unavailable Unavailable JEWELL SR, NA CHARLTON MD Unavailable Unavailable JEWELL SR, NA CHARLTON MD Unavailable Unavailable JEWELL SR, NA CHARLTON MD Unavailable Unavailable JEWELL SR, NA CHARLTON MD Unavailable Unavailable JEWELL SR, NA CHARLTON MD Unavailable Unavailable JEWELL SR, NA CHARLTON MD Unavailable Unavailable JEWELL SR, NA CHARLTON MD Unavailable Unavailable HOLLIS, L ECTOR PA Unavailable Unavailable HOLLIS, L ECTOR PA Unavailable Unavailable HOLLIS, L ECTOR PA Unavailable Unavailable HOLLIS, L ECTOR PA Unavailable Unavailable HOLLIS, L ECTOR PA Unavailable Unavailable HOLLIS, L ECTOR PA Unavailable Unavailable HOLLIS, L ECTOR PA Unavailable Unavailable HOLLIS, L ECTOR PA Unavailable Unavailable HOLLIS, L ECTOR PA Unavailable Unavailable HOLLIS, L ECTOR PA Unavailable Unavailable HOLLIS, L ECTOR PA Unavailable Unavailable HOLLIS, L ECTOR PA Unavailable Unavailable HOLLIS, L ECTOR PA Unavailable Unavailable HOLLIS, L ECTOR PA Unavailable Unavailable HOLLIS, L ECTOR PA Unavailable Unavailable HOLLIS, L ECTOR PA Unavailable Unavailable HOLLIS, L ECTOR PA Unavailable Unavailable HOLLIS, L ECTOR PA Unavailable Unavailable HOLLIS, L ECTOR PA Un[facility] Unavailable Unavailable Bartoszewski, Ninfa Kamilla MS, RPA-C Unavailable Unav ailable Bartoszewski, Ninfa Kamilla MS, RPA-C Unavailable Unav ailable Bartoszewski, Ninfa Kamilla MS, RPA-C Unavailable Unav ailable Bartoszewski, Ninfa Kamilla MS, RPA-C Unavailable Unav ailable Bartoszewski, Ninfa Kamilla MS, RPA-C Unavailable Unav ailable Bartoszewski, Ninfa Kamilla MS, RPA-C Unavailable Unav ailable Bartoszewski, Ninfa Kamilla MS, RPA-C Unavailable Unav ailable Bartoszewski, Ninfa Kamilla MS, RPA-C Unavailable Unav ailable Bartoszewski, Ninfa Kamilla MS, RPA-C Unavailable Unav ailable Bartoszewski, Ninfa Kamilla MS, RPA-C Unavailable Unav ailable Bartoszewski, Ninfa Kamilla MS, RPA-C Unavailable Unav ailable Bartoszewski, Ninfa Kamilla MS, RPA-C Unavailable Unav ailable Bartoszewski, Ninfa Kamilla MS, RPA-C Unavailable Unav ailable Bartoszewski, Ninfa Kamilla MS, RPA-C Unavailable Unav ailable Bartoszewski, Ninfa Kamilla MS, RPA-C Unavailable Unav ailable Bartoszewski, Ninfa Kamilla MS, RPA-C Unavailable Unav ailable Bartoszewski, Ninfa Kamilla MS, RPA-C Unavailable Unav ailable Bartoszewski, Ninfa Kamilla MS, RPA-C Unavailable Unav ailable Bartoszewski, Ninfa Kamilla MS, RPA-C Unavailable Unav ailable Bartoszewski, Ninfa Kamilla MS, RPA-C Unavailable Unav ailable Bartoszewski, Ninfa Kamilla MS, RPA-C Unavailable Unav ailable Bartoszewski, Ninfa Kamilla MS, RPA-C Unavailable Unav ailable Bartoszewski, Ninfa Kamilla MS, RPA-C Unavailable Unav ailable Bartoszewski, Ninfa Kamilla MS, RPA-C Unavailable Unav ailable Bartoszewski, Ninfa Kamilla MS, RPA-C Unavailable Unav ailable Bartoszewski, Ninfa Kamilla MS, RPA-C Unavailable Unav ailable Bartoszewski, Ninfa Kamilla MS, RPA-C Unavailable Unav ailable Bartoszewski, Ninfa Kamilla MS, RPA-C Unavailable Unav ailable Bartoszewski, Ninfa Kamilla MS, RPA-C Unavailable Unav ailable HUIZENGA, Prudence THOMPSON DO Unavailable Unavailable HUIZENGA, D DONNA DO Unavailable Unavailable HUIZENGA, Prudence THOMPSON DO Unavailable Unavailable HUIZENGA, D DONNA DO Unavailable Unavailable HUIZENGA, Prudence THOMPSON DO Unavailable Unavailable HUIZENGA, D DONNA DO Unavailable Unavailable HUIZENGA, Prudence THOMPSON DO Unavailable Unavailable HUIZENGA, Prudence THOMPSON DO Unavailable Unavailable HUIZENGA, Prudence THOMPSON DO Unavailable Unavailable HUIZENGA, Prudence THOMPSON DO Unavailable Unavailable HUIZENGA, Prudence THOMPSON DO Unavailable Unavailable HUIZENGA, Prudence THOMPSON DO Unavailable Unavailable HUIZENGA, Prudence THOMPSON DO Unavailable Unavailable HUIZENGA, Prudence THOMPSON DO Unavailable Unavailable HUIZENGA, Prudence THOMPSON DO Unavailable Unavailable HUIZENGA, Prudence THOMPSON DO Unavailable Unavailable HUIZENGA, Prudence THOMPSON DO Unavailable Unavailable HUIZENGA, Prudence THOMPSON DO Unavailable Unavailable HUIZENGA, Prudence THOMPSON DO Unavailable Unavailable HUIZENGA, Prudence THOMPSON DO Unavailable Unavailable HUIZENGA, Prudence THOMPSON DO Unavailable Unavailable HUIZENGA, Prudence THOMPSON DO Unavailable Unavailable HUIZENGA, Prudence THOMPSON DO Unavailable Unavailable HUIZENGA, Prudence THOMPSON DO Unavailable Unavailable HUIZENGA, Prudence THOMPSON DO Unavailable Unavailable HUIZENGA, Prudence THOMPSON DO Unavailable Unavailable HUIZENGA, Prudence THOMPSON DO Unavailable Unavailable HUIZENGA, Prudence THOMPSON DO Unavailable Unavailable HUIZENGA, Prudence THOMPSON DO Unavailable Unavailable HUIZENGA, Prudence THOMPSON DO Unavailable Unavailable HUIZENGA, Prudence THOMPSON DO Unavailable Unavailable HUIZENGA, Prudence THOMPSON DO Unavailable Unavailable HUIZENGA, Prudence THOMPSON DO Unavailable Unavailable HUIZENGA, Prudence THOMPSON DO Unavailable Unavailable HUIZENGA, Prudence THOMPSON DO Unavailable Unavailable HUIZENGA, Prudence THOMPSON DO Unavailable Unavailable HUIZENGA, Prudence THOMPSON DO Unavailable Unavailable HUIZENGA, Prudence THOMPSON DO Unavailable Unavailable HUIZENGA, Prudence THOMPSON DO Unavailable Unavailable HUIZENGA, D DONNA DO Unavailable Unavailable HUIZENGA, D DONNA DO Unavailable Unavailable HUIZENGA, D DONNA DO Unavailable Unavailable HUIZENGA, D DONNA DO Unavailable Unavailable HUIZENGA, D DONNA DO Unavailable Unavailable HUIZENGA, D DONNA DO Unavailable Unavailable HUIZENGA, D DONNA DO Unavailable Unavailable HUIZENGA, D DONNA DO Unavailable Unavailable HUIZENGA, D DONNA DO Unavailable Unavailable HUIZENGA, D DONNA DO Unavailable Unavailable HUIZENGA, D DONNA DO Unavailable Unavailable HUIZENGA, D DONNA DO Unavailable Unavailable HUIZENGA, D DONNA DO Unavailable Unavailable HUIZENGA, D DONNA DO Unavailable Unavailable HUIZENGA, D DONNA DO Unavailable Unavailable HUIZENGA, D DONNA DO Unavailable Unavailable HUIZENGA, D DONNA DO Unavailable Unavailable HUIZENGA, D DONNA DO Unavailable Unavailable HUIZENGA, D DONNA DO Unavailable Unavailable HUIZENGA, D DONNA DO Unavailable Unavailable HUIZENGA, D DONNA DO Unavailable Unavailable HUIZENGA, D DONNA DO Unavailable Unavailable HUIZENGA, D DONNA DO Unavailable Unavailable HUIZENGA, D DONNA DO Unavailable Unavailable HUIZENGA, D DONNA DO Unavailable Unavailable HUIZENGA, D DONNA DO Unavailable Unavailable HUIZENGA, D DONNA DO Unavailable Unavailable HUIZENGA, D DONNA DO Unavailable Unavailable HUIZENGA, D DONNA DO Unavailable Unavailable HUIZENGA, D DONNA DO Unavailable Unavailable HUIZENGA, D DONNA DO Unavailable Unavailable HUIZENGA, D DONNA DO Unavailable Unavailable HUIZENGA, D DONNA DO Unavailable Unavailable HUIZENGA, D DONNA DO Unavailable Unavailable Re-disclosure Warning The records that you are about to access may contain information from federally-assisted alcohol or drug abuse programs. If such information is present, then the following federally mandated warning applies: This information has been disclosed to you from records protected by federal confidentiality rules (42 CFR part 2). The federal rules prohibit you from making any further disclosure of this information unless further disclosure is expressly permitted by the written consent of the person to whom it pertains or as otherwise permitted by 42 CFR part 2. A general authorization for the release of medical or other information is NOT sufficient for this purpose. The Federal rules restrict any use of the information to criminally investigate or prosecute any alcohol or drug abuse patient.The records that you are about to access may contain highly sensitive health information, the redisclosure of which is protected by Article 27-F of the [facility] Public Health law. If you continue you may have access to information: Regarding HIV / AIDS; Provided by facilities licensed or operated by the [facility] Office of Mental Health; or Provided by the [facility] Office for People With Developmental Disabilities. If such information is present, then the following [facility] mandated warning applies: This information has been disclosed to you from confidential records which are protected by state law. State law prohibits you from making any further disclosure of this information without the specific written consent of the person to whom it pertains, or as otherwise permitted by law. Any unauthorized further disclosure in violation of state law may result in a fine or mcfp sentence or both. A general authorization for the release of medical or other information is NOT sufficient authorization for further disc losure. Family History Family Member Name Family Member Gender Family Member Status Date o f Status Description Data Source(s) Unknown Male Problem [facility] ([facility], ) () Encounters Encounter Providers Location Date Indications Data Source(s ) Emergency Attender: Benja Damoner: ZOLTAN Diallo 01/05/2020 03:32:00 AM EST - 01/05/2020 03:48:00 AM EST [facility] Patient discharged. Emergency Attender: Rey Galvan RPA-CReferrer: ZOLTAN WANG ACE 12/30/2019 02:01:00 AM EST - 12/30/2019 02:18:00 AM EST [facility] Patient discharged. Outpatient Attender: JAS [facility] 12/27/2019 08:45:00 AM EDT [facility] Outpatient Attender: JAS [facility] 12/04/2019 03:26:00 PM EDT [facility] Emergency Attender: JUAN Gayle: ZOLTAN HUGHES 11/30/2019 03:45:00 AM EDT - 11/30/2019 04:00:00 AM EDT [facility] Patient discharged. Outpatient [facility] 08/07/2019 07:26:20 PM EDT [facility] Emergency Attender: ECTOR Wilsonerrer: SIN JEWELL EMERGENCY ROOM-ER 08/07/2019 10:38:00 AM EDT - 08/07/2019 11:56:00 AM [facility] Patient discharged. Emergency Attender: ECTOR WHALEN ttender: RASTA GARY PAReferrer: ZOLTAN [facility] EMERG[facility]Y RO[facility]-ER 05/06/2019 07:25:00 PM EDT - 05/06/2019 10:28:00 PM [facility] Patient discharged. Outpatient Attender: ECTOR WILKERSON PAConsultant: [facility] p [id number] 05/06/2019 07:11:00 PM EDT [facility] ENTER 02/16/2019 12:00:00 AM EST [email or web address] ([facility]) Outpatient Attender: MARY Haleferrer: ZOLTAN HOWELL [facility] 12/28/2018 10:00:00 AM [facility] Outpatient Attender: MARY Haleferrer: SIN JEWELL EMERGENCY ROOM-RIVCLI 12/25/2018 09:01:00 AM EDT - 12/25/2018 09:01:00 AM [facility] Emergency Attender: YUE NEGRO PAReferrer : ZOLTAN JEWELL EMERGENCY ROOM-ER 10/31/2018 04:05:00 PM EDT - 10/31/2018 05:00:00 PM [facility] Patient discharged. Emergency Attender: ECTOR Wilsonerrer: DONNA ESTRELLA DO 04/19/2015 07:38:00 PM EST - 04/19/2015 10:57:00 PM [facility] Emergency Attender: Kamilla Dobson MS, RPA-ALICIA eferrer: DONNA BROWNING DO EMERGENCY ROOM-ER 03/03/2012 03:41:00 PM EST - 03/03/2012 04:14:00 PM [facility] Medications Medication Brand Name Start Date Product Form Dose Route Admi nistrative Instructions Pharmacy Instructions Status Indications Reaction Description Data Source(s) 300 mg 12/30/2019 12:00:00 AM EDT capsule 30 TAKE ONE CAPSULE BY MOUTH THREE TIMES A DAY FOR 10 DAYS TAKE ONE CAPSULE BY MOUTH THREE TIMES A DAY FOR 10 DAY S SOLD: 12/31/2019 [facility] 600 mg 12/30/2019 12:00:00 AM EDT tablet 30 TAKE ONE TABLET BY MOUTH EVERY 6 HOURS NEEDED FOR PAIN TAKE ONE TABLET BY MOUTH EVERY 6 HOURS A S NEEDED FOR PAIN SOLD: 12/31/2019 [facility] 5-325 mg 11/30/2019 12:00:00 AM EDT tablet 18 TAKE ONE TABLET BY MOUTH EVERY 4 HOURS NEEDED FOR PAIN MAXIMUM DAILY DOSE = 6 TAKE ONE TABLET BY MOUTH EVERY 4 HOURS NEEDED FOR PAIN MAXIMUM DAILY DOSE = 6 SOLD: 11/30/2019 [facility] Clindamycin 300 MG Oral Capsule CLINDAMYCIN HCL 11/30/2019 12:00 :00 AM EDT capsule 40 TAKE ONE CAPSULE BY MOUTH EVERY 6 HOURS TAKE ONE CAPSULE BY MOUTH EVERY 6 HOURS SOLD: 11/30/2019 [facility] 5-325 mg 08/07/2019 12:00:00 AM EDT tablet 20 TAKE 1-2 TABLETS BY MOUTH EVERY 4 TO 6 HOURS NEEDED FOR PAIN WHILE AWAKE MAXIMUM DAILY DOSE = SIX TABLETS TAKE 1-2 TABLETS BY MOUTH EVERY 4 TO 6 H OURS NEEDED FOR PAIN WHILE AWAKE MAXIMUM DAILY DOSE = SIX TABLETS SOLD: 08/07/2019 [facility] 875-125 mg 08/07/2019 12:00:00 AM EDT tablet 20 TAKE ONE TABLET BY MOUTH TWICE A DAY TAKE ONE TABLET BY MOUTH TWICE A DAY SOLD: 08/07/2019 [facility] 5-325 mg 05/07/2019 12:00:00 AM EDT tablet 12 TAKE ONE TO TWO TABLETS BY MOUTH EVERY 4 TO 6 HOURS WHILE AWAKE MAXIMUM DAILY DOSE = 12 TAKE ONE TO TWO TABLETS BY MOUTH EVERY 4 TO 6 HOURS WHILE AWAKE MAXIMUM DAILY DOSE = 12 SOLD: 05/07/2019 [facility] 500 mg 05/07/2019 12:00:00 AM EDT tablet 14 TAKE ONE TABLET BY MOUTH EVERY DAY TAKE ONE TABLET BY MOUTH EVERY DAY SOLD: 05/07/2019 [facility] Escitalopram 20 MG Oral Tablet ESCITALOPRAM OXALATE 12/25/2018 1 2:00:00 AM EDT tablet 30 TAKE ONE TABLET BY MOUTH EVERY D AY TAKE ONE TABLET BY MOUTH EVERY DAY SOLD: 05/17/2019 [facility] 40 mg 12/25/2018 12:00:00 AM EDT capsule,delayed release (DR/EC) 60 TAKE ONE CAPSULE BY MOUTH TWICE A DAY TAKE ONE CAPSULE BY MOUTH TWICE A DAY SOLD: 06/21/2019 [facility] 40 mg 12/25/2018 12:00:00 AM EDT capsule,delayed release (DR/EC) 60 TAKE ONE CAPSULE BY MOUTH TWICE A DAY TAKE ONE CAPSULE BY MOUTH TWICE A DAY SOLD: 05/17/2019 [facility] Escitalopram 20 MG Oral Tablet ESCITALOPRAM OXALATE 12/25/2018 1 2:00:00 AM EDT tablet 30 TAKE ONE TABLET BY MOUTH EVERY D AY TAKE ONE TABLET BY MOUTH EVERY DAY SOLD: 06/21/2019 [facility] Insurance Providers Payer name Policy type / Coverage type Policy ID Covered republican ID Covered republican's relationship to escobar Policy Escobar Plan Information REJI [id number] SP [id number] [place] [id number] S [id number] REJI CARE MEDICAID [id number] S [id number] Medicaid Dental P [id number] Medicaid Dental P [id number] S [id number] [facility] [id number] S [id number] [facility] [employer] [facility] [id number] S [id number] SELF PAY [id number] S [id number] MEDICAID [id number] MEDICAID [id number] MEDICAID [id number] MEDICAID [id number] SP [id number] REJI [facility] MEDICAID UNAVAILABLE S UNAVAILABLE [facility]-Medicaid [id number] ANS-Medicaid [id number] ANS-Medicaid [id number] [facility]-Medicaid [id number] ANSI-Medicaid [id number] MEDICAID -[id number] EMERGENCY ROOM [id number] PENDING GOVT INSURANCE [id number] SP [id number] REJI CARE MEDICAID [id number] S [id number] REJI CARE MEDICAID [id number] S [id number] [employer] [id number] S [id number] SELF PAY ONLY [id number] SP [id number] Reji Care [place] Medicaid [id number] Self [id number] RE[facility] [place] [id number] 18 [id number] [place] [id number] 18 [id number] [place] [id number] Self [id number] Reji [facility] Commercial [id number] Self [id number] [place] [id number] 18 [id number] [facility] [place] [id number] 18 [id number] [place] [id number] Self [id number] [employer] Commercial [id number] Self [id number] [facility] [place] [facility] [id number] 18 [id number] [place] [id number] Self [id number] MEDICAID M [id number] S [id number] [place] [id number] Self [id number] UNAVAILABLE UNAVAILA BLE PUPIL BENEFITS HEALTH PL O UNAVAILABLE S UNAVAILABLE REJI [id number] SP [id number] BLUE CROSS BLUE SHIELD -O/P [id number] PUPIL BENEFIT PLAN -O/P 0 18 0 [employer] [id number] S [id number] EMPLOYER [id number] S [id number] STATE INSURANCE FUND [id number] S [id number] PUPIL BENEFITS S [id number] O CA [id number] PUPIL BENEFITS S UNAVAILABLE O KARL VAILABLE EXCELLUS BCBS P [id number] S [id number] [facility] [id number] Problems, Conditions, and Diagnoses Code Display Name Description Problem Type Effective Dates Data Source(s) F17.200 Nicotine dependence, unspecified, uncomp licated NICOTINE DEPENDENCE, UNSPECIFIED, UNCOMPLICATED Diagnosis 01/05/2020 03:32:00 AM [facility] K08.89 OTHER SPECIFIED DISORDERS OF TEETH AND S UPPORTING STRUCTURES OTHER SPECIFIED DISORDERS OF TEETH AND SUPPORTING STRUCTURES Diagnosis 01/05/2020 03:32:00 AM [facility] F17.210 Nicotine dependence, cigarettes, uncompl icated NICOTINE DEPENDENCE, CIGARETTES, UNCOMPLICATED Diagnosis 12/30/2019 02:01:00 AM [facility]spital K02.9 Dental caries, unspecified DENTAL CARIES, UNSPECIFIED Diagnosis 11/30/2019 03:45:00 AM [facility] J01.00 Acute maxillary sinusitis, unspecified A CUTE MAXILLARY SINUSITIS, UNSPECIFIED Diagnosis 08/07/2019 10:38:00 AM [facility] l R51 Headache HEADACHE Diagnosis 08/07/2019 10:38:00 AM [facility] N30.01 Acute cystitis with hematuria ACUTE CYSTITIS WITH TRISHA TURIA Diagnosis 05/06/2019 07:25:00 PM [facility] N45.1 Epididymitis EPIDIDYMITIS Diagnosis 05/06/2019 07:25:00 P M [facility] R10.2 Pelvic and perineal pain PELVIC AND PERINEAL PAIN Diag nosis 05/06/2019 07:25:00 PM [facility] Results ID Date Data Source [id number] 01/05/2020 04:11:00 AM [facility] l Patient: DESTINEE ARCE Observation [facility].VisitID: [id number] [place] [address] [phone], MRegistration Date/Time: 01/05/2020 03:05 Weight:90.7 kg (S). Height/Length:72 inches (S). BMI:27.1 PAST HISTORYMedications:None. Allergies:No Known Drug Allergy. FAMILY HISTORY(non contributory). (Electronically signed by Benja Roberts PA-C 01/05/2020 03:44) Name Value Range Interpretation Code Description Data Martina rce(s) Supporting Document(s) ID Date Data Source [id number] 12/30/2019 09:11:00 AM EST [facility] Patient: DESTINEE ARCE [facility]ation [facility] [place]: [id number] [place] [address] [phone], MRegistration Date/Time: 12/30/2019 01:31 Weight:104.3 kg (S). Height/Length:71 inches (S). BMI:32.1 FAMILY HISTORYNo significant family medical history. (Electronically signed by Rey Galvan PA 12/30/2019 01:37) Addenda for DESTINEE ARCE VisitID: [id number] Date: 12/30/2019 12/30/2019 9:09Prescription called in to pharmacy as [employer] would not send e-script. Clindamycin 300mg po TID for 10 days. Unable to send RX for [place]. [employer] attempted to call pt at number listed, number not in service at this time. (Electronically signed by Monalisa Yi R.N. - 12/30/2019 9:09) Name Value Range Interpretation Code Description Data Martina rce(s) Supporting Document(s) ID Date Data Source [id number] 12/30/2019 02:36:00 AM EST [facility] Patient: DESTINEE ARCE Observation Rep ort - [facility].VisitID: [id number] [place] [address] [phone], MRegistration Date/Time: 12/30/2019 01:31 Weight:104.3 kg (S). Height/Length:71 inches (S). BMI:32.1 FAMILY HISTORYNo significant family medical history. (Electronically signed by Rey Galvan PA 12/30/2019 01:37) Name Value Range Interpretation Code Description Data Martina rce(s) Supporting Document(s) ID Date Data Source [id number] 11/30/2019 04:15:00 AM [facility] Patient: DESTINEE ARCE Observation [facility] ort - [facility] . [facility].VisitID: [id number] [place] [address] [phone], MRegistration Date/Time: 11/30/2019 03:14 Weight:90.7 kg (S). Height/Length:72 inches (S). BMI:27.1 PAST HISTORYProblems:Concussion.Epididymitis.Gallstone(s).Chest Wall Pain.ADHD - Attention Deficit Hyperactivity Disorder.Anxiety Reaction.Bronchitis.Stomach Pain.URI.UTI - Urinary Tract Infection.Sinusitis.Gastroesophageal Reflux Disease.Paresthesia.Peptic Ulcer Disease. Additional Surgeries:Right hip. Medications:None. Allergies:No Known Drug Allergy. FAMILY HISTORYNo significant family medical history. (Electronically signed by Juan Sandoval, P.AValeriy 11/30/2019 04:03) Name Value Range Interpretation Code Description [facility]) ID Date Data Source [id number] 08/08/2019 02:01:00 PM [facility] Patient: DESTINEE ARCE [facility] ort - [facility] . [facility].VisitID: [id number] [place] [address] [phone], MRegistration Date/Time: 08/07/2019 10:06 Weight:99.7 kg (S). Height/Length:72 inches (S). BMI:29.8 PAST HISTORYProblems:ADHD - Attention Deficit Hyperactivity Disorder.Anxiety Reaction.Gallstone(s).Gastroesophageal Reflux Disease.Peptic Ulcer Disease. Additional Surgeries:Right hip. Medications:None. Allergies:No Known Drug Allergy. FAMILY HISTORYNegative. No significant family medical history. (Electronically signed by Ector Wilkerson PJenny 08/08/2019 13:32) Name Value Range Interpretation Code Description Data [facility] Supporting Document(s) ID Date Data Source [id number] 08/07/2019 11:28:00 AM EDT [facility] DATE OF EXAMINATION: 08/07/2019 10:24 EDT FACIAL WITHOUT IV CONTRAST HISTORY: Right facial tenderness pain TECHNIQUE: This CT exam was performed using the following dose reduction techniques:automated exposure control, adjustment of mA and/or kV according to the patientsize, and use of iterative reconstruction technique. High-resolution axial images were taken without contrast administration and withcoronal reformatting. FINDINGS: Mild chronic bilateral maxillary and moderate chronic left frontal sinusitis isnoted. Sphenoid sinuses are clear with exception of a 0.5 cm mucous retentioncyst versus mucosal polyp of the right sphenoid sinus. Mastoidal air cells arewell aerated. Nasal septum is midline in position. Ostiomeatal units are patent. IMPRESSION: Mild chronic maxillary, moderate chronic left frontal and bilateral ethmoidalsinusitis. Electronically signed in PS360 by: Julius Hoyt M.D. 08/07/2019 11:22 EDT Name Value Range Interpretation Code Description Data [facility] Supporting Document(s) ID Date Data Source [id number] 08/07/2019 11:04:00 AM EDT [facility] l TSYSORDER [id number] Name Value Range Interpretation Code Description Data Martina rce(s) Supporting Document(s) GLUCOSE 92 mg/dL 74-106 [facility] BLOOD UREA NITROGEN 14 mg/dL 7-18 [facility] ital CREATININE 0.8 mg/dL 0.7-1.3 [facility] SODIUM 139 mmol/L 136-145 [facility] POTASSIUM 4.0 mmol/L 3.5-5.1 [facility] CHLORIDE 105 mmol/L 98-107 [facility] CO2 29 mmol/L 21-32 [facility] CALCIUM 8.8 mg/dL 8.5-10.1 [facility] ANION GAP 5.0 mmol/L 5-12 [facility] GLOMERULAR FILTRATION RATE >90 mL/min [facility] GFR IS CALCULATED IN mL/min/1.73m2 MAUREEN L FUNCTION: >90MILDLY DECREASED: 60-89MILDY TO MODERATELY DECREASED: 45-59 MODERATELY TO SEVERELY DECREASED: 30-44SEVERELY DECREASED: 15-29RENAL FAILURE: <15 AST 15 U/L 15-37 [facility] ALT 21 U/L 12-78 [facility] ALKALINE PHOSPHATASE 60 U/L 46-116 [facility] TOTAL BILIRUBIN 0.3 mg/dL 0.2-1.0 [facility] TOTAL PROTEIN 7.0 g/dl 6.4-8.2 [facility] ALBUMIN 3.8 gm/dL 3.4-5.0 [facility] ID Date Data Source [id number] 08/07/2019 10:45:00 AM EDT [facility] TSYSORDER [id number] Name Value Range Interpretation Code Description Data Martina rce(s) Supporting Document(s) WHITE BLOOD COUNT 7.7 K/mm3 4.0-10.0 [facility]LO[facility] 5.23 M/mm3 4.50-6.00 [facility] HEMOGLOBIN 15.5 gm/dL 14.0-18.0 [facility] HEMATOCRIT 45.3 % 42.0-54.0 [facility] MEAN CELL VOLUME 86.6 fl 80-96 [facility] MEAN CORPUSCULAR HEMOGLOBIN 29.6 pg 27.0-31.0 [facility] MEAN CORPUSCULAR HGB CONC 34.2 g/dl 32.0-36.0 [facility] RED CELL DISTRIBUTION WIDTH 12.8 % 10.0-14.5 [facility] PLATELET COUNT 214 K/mm3 172-450 [facility] MEAN PLATELET VOLUME 10.5 fl 9.0-13.0 [facility] % 67.1 % 50-80.0 [facility] IG% 0.1 % 0.0-0.2 [facility] LYMPH % 22.3 % 25.0-50.0 L [facility] MONO % 7.8 % 2.0-10.0 [facility] EOS % 2.1 % 0-5.0 [facility] BASO % 0.6 % 0.0-2.0 [facility] GRAN # 5.2 K/mm3 2.0-8.00 [facility] IG# 0.0 K/mm3 0.0-0.2 [facility] LYMPH # 1.7 K/mm3 1.0-5.0 [facility] MONO # 0.6 K/mm3 0.10-1.20 [facility] EOS # 0.2 K/mm3 0.0-0.5 [facility] BASO # 0.1 K/mm3 0.0-0.2 [facility] ID Date Data Source [id number] 05/07/2019 01:34:00 AM EDT [facility] Patient: DESTINEE ARCE Observation Rep ort - [facility] . [facility].VisitID: [id number] [place] [address] [phone], MRegistration Date/Time: 05/06/2019 17:34 Weight:99.7 kg (S). Height/Length:72 inches (S). BMI:29.8 PAST HISTORYProblems:Peptic Ulcer Disease.Gallstone(s).Gastroesophageal Reflux Disease.Bronchitis.Chest Wall Pain.ADHD - Attention Deficit Hyperactivity Disorder.Anxiety Reaction.Stomach Pain.URI.Concussion.Paresthesia. Additional Surgeries:Right hip. Medications:HydrOXYzine HCl Oral 50 mg, 3x a day as needed, last dose yesterday.Lexapro Oral 10 mg, daily, last dose yesterday.Omeprazole Oral 40 mg, daily, last dose yesterday. Allergies:Haloperidol. (dystonia). FAMILY HISTORYNegative. No significant family medical history. (Electronically signed by Doris Szymanski 05/07/2019 01:22) Name Value Range Interpretation Code Description Data Martina rce(s) Supporting Document(s) ID Date Data Source [id number] 05/06/2019 09:15:00 PM EDT [facility] DATE OF EXAMINATION: 05/06/2019 20:09 EDT ABD/PEL WITH IV CONTRAST HISTORY: Right lower quadrant pain TECHNIQUE: This CT exam was performed using the following dose reduction techniques:automated exposure control, adjustment of mA and/or kV according to thepatient's size, and use of iterative reconstruction technique. Standard contiguous axial spiral imaging was obtained from the dome of thediaphragms through the symphysis pubis with intravenous contrast administrationand with coronal reformatting. FINDINGS: Lower thorax: The visualized lungs are clear. ABDOMEN: Liver: NormalGallbladder and bile ducts: NormalPancreas: NormalSpleen: NormalAdrenals: NormalKidneys and ureters: NormalStomach and bowel: NormalAppendix: Normal PELVIS: Bladder: NormalReproductive: Normal Spine: Normal IMPRESSION: Negative CT abdomen and pelvis. Electronically signed in PS360 by: Roscoe Forbes M.D. 05/06/2019 21:09 EDT Name Value Range Interpretation Code Description Data Martina rce(s) Supporting Document(s) ID Date Data Source [id number] 05/06/2019 07:57:00 PM EDT [facility] TSYSORDER [id number] Name Value Range Interpretation Code Description Data Martina rce(s) Supporting Document(s) MAGNESIUM 2.2 mg/dL 1.8-2.4 [facility] ID Date Data Source [id number] 05/06/2019 07:57:00 PM EDT [facility] TSYSORDER [id number] Name Value Range Interpretation Code Description Data Martina rce(s) Supporting Document(s) GLUCOSE 69 mg/dL 74-106 [facility] BLOOD UREA NITROGEN 13 mg/dL 7-18 [facility] ital CREATININE 0.8 mg/dL 0.7-1.3 [facility] SODIUM 143 mmol/L 136-145 [facility] POTASSIUM 4.0 mmol/L 3.5-5.1 [facility] CHLORIDE 106 mmol/L 98-107 [facility] CO2 31 mmol/L 21-32 [facility] CALCIUM 9.1 mg/dL 8.5-10.1 [facility] ANION GAP 6.0 mmol/L 5-12 [facility] GLOMERULAR FILTRATION RATE >90 mL/min [facility] GFR IS CALCULATED IN mL/min/1.73m2 MAUREEN L FUNCTION: >90MILDLY DECREASED: 60-89MILDY TO MODERATELY DECREASED: 45-59 MODERATELY TO SEVERELY DECREASED: 30-44SEVERELY DECREASED: 15-29RENAL FAILURE: <15 AST 19 U/L 15-37 [facility] ALT 23 U/L 12-78 [facility] ALKALINE PHOSPHATASE 65 U/L 46-116 [facility] pital TOTAL BILIRUBIN 0.2 mg/dL 0.2-1.0 [facility] TOTAL PROTEIN 6.9 g/dl 6.4-8.2 [facility] ALBUMIN 4.0 gm/dL 3.4-5.0 [facility] ID Date Data Source [id number] 05/06/2019 07:57:00 PM EDT [facility] [id number] Name Value Range Interpretation Code Description Data Martina rce(s) Supporting Document(s) LIPASE 155 U/L 73-393 [facility] ID Date Data Source [id number] 05/06/2019 07:53:00 PM EDT [facility] l TSYSORDER [id number] Name Value Range Interpretation Code Description Data Martina rce(s) Supporting Document(s) PARTIAL THROMBOPLASTIN TIME 27.0 SECONDS 21.4-30.2 [facility] ID Date Data Source [id number] 05/06/2019 07:53:00 PM EDT [facility] l TSYSORDER [id number] Name Value Range Interpretation Code Description Data Martina rce(s) Supporting Document(s) PROTHROMBIN TIME (PATIENT) 9.9 SECONDS 9.2-11.6 [facility] INR 0.95 0.87-1.06 [facility] ID Date Data Source [id number] 05/06/2019 07:42:00 PM EDT [facility] l TSYSORDER [id number] Name Value Range Interpretation Code Description Data Martina rce(s) Supporting Document(s) WHITE BLOOD COUNT 8.4 K/mm3 4.0-10.0 [facility] al RED BLOOD COUNT 4.91 M/mm3 4.50-6.00 [facility] HEMOGLOBIN 14.4 gm/dL 14.0-18.0 [facility] HEMATOCRIT 43.1 % 42.0-54.0 [facility] MEAN CELL VOLUME 87.8 fl 80-96 [facility] MEAN CORPUSCULAR HEMOGLOBIN 29.3 pg 27.0-31.0 [facility] MEAN CORPUSCULAR HGB CONC 33.4 g/dl 32.0-36.0 [facility] RED CELL DISTRIBUTION WIDTH 12.9 % 10.0-14.5 [facility] PLATELET COUNT 214 K/mm3 172-450 [facility] MEAN PLATELET VOLUME 10.7 fl 9.0-13.0 [facility] pital GRAN % 60.5 % 50-80.0 [facility] IG% 0.1 % 0.0-0.2 [facility] LYMPH % 26.9 % 25.0-50.0 [facility] MONO % 9.6 % 2.0-10.0 [facility] EOS % 2.3 % 0-5.0 [facility] BASO % 0.6 % 0.0-2.0 [facility] GRAN # 5.1 K/mm3 2.0-8.00 [facility] IG# 0.0 K/mm3 0.0-0.2 [facility] LYMPH # 2.3 K/mm3 1.0-5.0 [facility] MONO # 0.8 K/mm3 0.10-1.20 [facility] EOS # 0.2 K/mm3 0.0-0.5 [facility] BASO # 0.1 K/mm3 0.0-0.2 [facility] ID Date Data Source [id number] 05/09/2019 12:48:00 PM [facility]T [facility] Name Value Range Interpretation Code Description Data Martina rce(s) Supporting Document(s) [facility] ID Date Data Source [id number] 05/06/2019 07:29:00 PM EDT [facility] TSYSORDER [id number] Name Value Range Interpretation Code Description Data Martina rce(s) Supporting Document(s) URINE RBC 1-3 /hpf 0-3 [facility] URINE WBC 20-25 /hpf 0-5 H [facility] URINE CULTURE ADDED URINE EPITHELIAL CELLS 1+ /hpf 0 [facility]spital URINE BACTERIA 1+ NONE SEEN [facility] URINE MUCUS 1+ NEGATIVE H [facility] ID Date Data Source [id number] 05/06/2019 07:20:00 PM EDT [facility] ital TSYSORDER [id number] Name Value Range Interpretation Code Description Data Martina rce(s) Supporting Document(s) URINE COLOR. YELLOW [facility] URINE APPEARANCE CLEAR [facility] l SPECIFIC GRAVITY,URINE 1.025 1.001-1.035 [facility] URINE LEUKOCYTE ESTERASE 1+(SMALL) NEGATIVE H [facility] URINE NITRATE NEGATIVE NEGATIVE [facility] PH,URINE 7.0 5.0-9.0 [facility] URINE PROTEIN NEGATIVE mg/dL NEGATIVE [facility] deyvi URINE GLUCOSE (UA) NEGATIVE mg/dL NEGATIVE [facility] URINE KETONE NEGATIVE mg/dL NEGATIVE [facility] UROBILINOGEN NORMAL(0.2-1) mg/dL 0-1 [facility] URINE BILIRUBIN NEGATIVE NEGATIVE [facility] URINE BLOOD NEGATIVE NEGATIVE [facility] Manual Entery of ALL Results have been Lian CALERO on 05/06/19 @ 1919. Procedure
[2020-04-13] MEDS ORDERED: KETOROLAC 30 MG/ML 1ML VIAL IV ONE (20:45)
[2020-04-13] MEDS ORDERED: ONDANSETRON 4MG/2ML VIAL IV ONE (20:45)
[2020-04-13] MEDS ORDERED: NS 500 ML IV ONE (20:45)
[2020-04-13 20:46] LABS: BASO # 0.1 10^3/uL (0.0-0.2); BASO % 0.4 % (0.0-1.0); EOS # 0.1 10^3/uL (0.0-0.5); EOS % 0.9 % (0.0-3.0); HEMATOCRIT 44.1 % (42.0-52.0); HEMOGLOBIN 14.5 g/dl (13.5-17.5); LYMPH # 1.5 10^3/uL (1.5-5.0); LYMPH % 11.8 % (24.0-44.0); MEAN CORPUSCULAR HEMOGLOBIN 28.8 pg (27.0-33.0); MEAN CORPUSCULAR HGB CONC 32.9 g/dl (32.0-36.5); MEAN CORPUSCULAR VOLUME 87.7 fl (80.0-96.0); MONO # 0.7 10^3/uL (0.0-0.8); MONO % 5.8 % (2.0-8.0); NEUTROPHILS # 10.4 10^3/uL (1.5-8.5); NEUTROPHILS % 80.6 % (36.0-66.0); PLATELET COUNT, AUTOMATED 205 10^3/uL (150-450); RED BLOOD COUNT 5.03 10^6/uL (4.30-6.10); WHITE BLOOD COUNT 12.9 10^3/uL (4.0-10.0)
[2020-04-13 21:03] LABS: ERYTHROCYTE SEDIMENTATION RATE 1 mm/hr (0-15)
--- OUTSIDE RECORDS SUMMARY | 2020-04-13 21:13 | CCD ---
Author Author [facility] Organization [facility] Address Unknown Phone Unavailable Care Team Providers Care Concrete Spreader Name Role Phone PETROFF, RASTA PA Unavailable [...] Unavailable Galvan, W Rey RPA-C Unavailable Unavailable HOLLISBryanna PA Unavailable Unavailable HOLLISBryanna PA Unavailable Unavailable HOLLISBryanna PA Unavailable Unavailable HOLLIS, Bryanna BUNN PA [...] Kamilla MS, RPA-C Unavailable Unav ailable HUIZENGA, D DONNA DO Unavailable Unavailable HUIZENGA, [...] is protected by Article 27-F of the [facility] Public [facility] law. If you continue you may have access to information: Regarding HIV / AIDS; Provided by facilities licensed or operated by the [facility] Office of Mental Health; or Provided by the [facility] Office for People With Developmental Disabilities. If such information is present, then the following [facility] mandated warning applies: This information has been [...] law may result in a fine or skilled nursing sentence or both. A general authorization for the release of medical or other information is NOT sufficient authorization for further disc losure. Family History Family Member Name Family Member Gender Family Member Status Date o f Status Description Data Source(s) Unknown Male Problem [facility] ([facility], ) () Encounters Encounter Providers Location Date Indications Data Source(s ) Emergency Attender: Benja Gayle: ZOLTAN Diallo 01/05/2020 03:32:00 AM EST - 01/05/2020 03:48:00 AM EST [facility] Patient discharged. Emergency Attender: Rey Galvan RPA-CReferrer: ZOLTAN WANG ACE 12/30/2019 02:01:00 AM EST - 12/30/2019 02:18:00 AM EST [facility] Patient discharged. Outpatient Attender: [facility] 12/27/2019 08:45:00 AM EDT [facility] Outpatient Attender: JAS [facility] 12/04/2019 03:26:00 PM EDT [facility] Emergency Attender: JUAN Gayle: ZOLTAN HUGHES 11/30/2019 03:45:00 AM EDT - 11/30/2019 04:00:00 AM EDT [facility] Patient discharged. Outpatient [facility] 08/07/2019 07:26:20 PM EDT [facility] Emergency Attender: ECTOR BRAMBILAeferrer: SIN JEWELL [facility]-ER 08/07/2019 10:38:00 AM EDT - 08/07/2019 11:56:00 AM [facility] Patient discharged. Emergency Attender: ECTOR WHALEN ttender: RASTA GARY PAReferrer: ZOLTAN [facility]ER 05/06/2019 07:25:00 PM EDT - 05/06/2019 10:28:00 PM [facility] Patient discharged. Outpatient Attender: ECTOR WILKERSON PAConsultant: [facility] p [id number] 05/06/2019 07:11:00 PM EDT [facility] 02/16/2019 12:00:00 AM EST [email or web address] ([facility] Outpatient Attender: MARY Haleferrer: ZOLTAN HOWELL [facility] 12/28/2018 10:00:00 AM [facility] Outpatient Attender: MARY Haleferrer: SIN JEWELL EM[facility]-RIVCLI 12/25/2018 09:01:00 AM EDT - 12/25/2018 09:01:00 AM [facility] Emergency Attender: YUE NEGRO PAReferrer : ZOLTAN JEWELL [facility]-ER 10/31/2018 04:05:00 PM EDT - 10/31/2018 05:00:00 PM [facility] Patient discharged. Emergency Attender: ECTOR Wilsonerrer: DONAN ESTRELLA DO 04/19/2015 07:38:00 PM EST - 04/19/2015 10:57:00 PM [facility] Emergency Attender: Kamilla Dobson MS, RPA-ALICIA eferrer: DONNA BROWNING DO EMERGENCY ROOM-ER 03/03/2012 03:41:00 PM EST - 03/03/2012 04:14:00 PM [facility] Medications Medication Brand Name Start Date Product [...] type / Coverage type Policy ID Covered libertarian ID Covered libertarian's relationship to escobar Policy Escobar Plan Information REJI [id number] SP [id number] [place] [id number] S [id number] REJI CARE MEDICAID [id number] S [id number] Medicaid Dental P [id number] S [id number] Medicaid Dental P [id number] S [id number] [facility] [id number] S [id number] Jildy [id number] S [id number] SELF PAY [id number] S [id number] MEDICAID [id number] S [id number] MEDICAID [id number] S [id number] MEDICAID [id number] S [id number] MEDICAID [id number] SP [id number] REJI [facility] MEDICAID UNAVAILABLE S UNAVAILABLE [facility]-Medicaid [id number] ANS-Medicaid [id number] ANSI-Medicaid [id number] ANS-Medicaid [id number] ANSI-Medicaid [id number] MEDICAID -O/P EMERGENCY ROOM [id number] 18 [id number] PENDING GOVT INSURANCE [id number] SP [id number] REJI CARE MEDICAID [id number] S [id number] REJI CARE MEDICAID [id number] S [id number] Jildy [id number] S [id number] SELF PAY ONLY [id number] SP [id number] Reji Care [place] Medicaid [id number] Self [id number] [place] [facility] [place] [id number] 18 [id number] [place] [id number] 18 [id number] [place] Commercial [id number] Self [id number] [place] Commercial [id number] Self [id number] [place] [id number] 18 [id number] RE[place]I CARE [place] [facility] [facility] [place] [id number] 18 [id number] [place] Commercial [id number] Self [id number] [place] Commercial [id number] Self [id number] REJI CARE OF [place] XIX [facility] [id number] 18 [id number] [place] Care [place] Commercial [id number] Self [id number] MEDICAID M [id number] S [id number] [place] [id number] Self [id number] O UNAVAILABLE UNAVAILA BLE PUPIL BENEFITS HEALTH PL O UNAVAILABLE S UNAVAILABLE REJI [id number] SP [id number] BLUE CROSS BLUE SHIELD -O/P [id number] PUPIL BENEFIT PLAN -O/P 0 [id number] [employer] [id number] S [id number] EMPLOYER [id number] S [id number] STATE INSURANCE FUND [id number] S [id number] PUPIL BENEFITS S [id number] O [place] [id number] PUPIL BENEFITS S UNAVAILABLE O KARL VAILABLE [employer] BCBS P [id number] S [id number] [facility] [id number] 18 [id number] Problems, Conditions, and Diagnoses Code Display Name Description Problem Type Effective Dates Data Source(s) F17.200 Nicotine dependence, unspecified, uncomp licated NICOTINE DEPENDENCE, UNSPECIFIED, UNCOMPLICATED Diagnosis 01/05/2020 03:32:00 AM [facility] K08.89 OTHER SPECIFIED DISORDERS OF TEETH AND S UPPORTING STRUCTURES OTHER SPECIFIED DISORDERS OF TEETH AND SUPPORTING STRUCTURES Diagnosis 01/05/2020 03:32:00 AM [facility] F17.210 Nicotine dependence, cigarettes, uncompl icated NICOTINE DEPENDENCE, CIGARETTES, UNCOMPLICATED Diagnosis 12/30/2019 02:01:00 AM [facility]spital K02.9 Dental caries, unspecified DENTAL CARIES, UNSPECIFIED Diagnosis 11/30/2019 03:45:00 AM [facility] J01.00 Acute maxillary sinusitis, unspecified A CUTE MAXILLARY SINUSITIS, UNSPECIFIED Diagnosis 08/07/2019 10:38:00 AM [facility] l R51 Headache HEADACHE Diagnosis 08/07/2019 10:38:00 AM [facility] N30.01 Acute cystitis with hematuria ACUTE CYSTITIS WITH TRISHA TURIA Diagnosis 05/06/2019 07:25:00 PM [facility] N45.1 Epididymitis EPIDIDYMITIS Diagnosis 05/06/2019 07:25:00 P M [facility] R10.2 Pelvic and perineal pain PELVIC AND PERINEAL PAIN Diag nosis 05/06/2019 07:25:00 PM [facility] Results ID Date Data Source [id number] 01/05/2020 04:11:00 AM [facility] Patient: DESTINEE ARCE Observation Rep ort - Physicians/Mid Levels [place] [facility].VisitID: [id number] [place] [address] [phone], MRegistration Date/Time: 01/05/2020 03:05 Weight:90.7 kg (S). Height/Length:72 inches (S). BMI:27.1 PAST HISTORYMedications:None. Allergies:No Known Drug Allergy. FAMILY HISTORY(non contributory). (Electronically signed by Benja Roberts PA-C 01/05/2020 03:44) Name Value Range Interpretation Code Description Data Martina rce(s) Supporting Document(s) ID Date Data Source [id number] 12/30/2019 09:11:00 AM EST [facility] Patient: DESTINEE ARCE Observation Rep ort - Physicians/Mid Levels [place] [facility].VisitID: [id number] [place] [address] [phone], MRegistration Date/Time: 12/30/2019 01:31 Weight:104.3 kg (S). Height/Length:71 inches (S). BMI:32.1 FAMILY HISTORYNo significant family medical history. (Electronically signed by Rey Galvan PA 12/30/2019 01:37) Addenda for DESTINEE ARCE VisitID: [id number] Date: 12/30/2019 12/30/2019 9:09Prescription called in to pharmacy as [employer] would not send e-script. Clindamycin 300mg po TID for 10 days. Unable to send RX for [place]. Insurance Law Specialist attempted to call pt at number listed, number not in service at this time. (Electronically signed by Monalisa King 12/30/2019 9:09) Name Value Range Interpretation Code Description Data Martina rce(s) Supporting Document(s) ID Date Data Source [id number] 12/30/2019 02:36:00 AM EST [facility] Patient: DESTINEE ARCE Observation Rep ort - Physicians/[facility] Levels [place] [facility].VisitID: [id number] [place] [address] [phone], MRegistration Date/Time: 12/30/2019 01:31 Weight:104.3 kg (S). Height/Length:71 inches (S). BMI:32.1 FAMILY HISTORYNo significant family medical history. (Electronically signed by Rey Galvan PA 12/30/2019 01:37) Name Value Range Interpretation Code Description Data Martina rce(s) Supporting Document(s) ID Date Data Source [id number] 11/30/2019 04:15:00 AM [facility] Patient: DESTINEE ARCE [facility] ort - Physicians/Mid Levels [place] [facility].VisitID: [id number] [place] [address] [phone], MRegistration Date/Time: 11/30/2019 03:14 Weight:90.7 kg (S). Height/Length:72 inches (S). BMI:27.1 PAST HISTORYProblems:Concussion.Epididymitis.Gallstone(s).Chest Wall Pain.ADHD - Attention Deficit Hyperactivity Disorder.Anxiety Reaction.Bronchitis.Stomach Pain.URI.UTI - Urinary Tract Infection.Sinusitis.Gastroesophageal Reflux Disease.Paresthesia.Peptic Ulcer Disease. Additional Surgeries:Right hip. Medications:None. Allergies:No Known Drug Allergy. FAMILY HISTORYNo significant family medical history. (Electronically signed by Juan Sandoval, P.AValeriy 11/30/2019 04:03) Name Value Range Interpretation Code Description Data [facility](s) Supporting Document(s) ID Date Data Source [id number] 08/08/2019 02:01:00 PM [facility] Patient: DESTINEE ARCE [facility] ort - Physicians/Mid Levels [place] [facility].VisitID: [id number] [place] [address] [phone], MRegistration Date/Time: 08/07/2019 10:06 Weight:99.7 kg (S). Height/Length:72 inches (S). BMI:29.8 PAST HISTORYProblems:ADHD - Attention Deficit Hyperactivity Disorder.Anxiety Reaction.Gallstone(s).Gastroesophageal Reflux Disease.Peptic Ulcer Disease. Additional Surgeries:Right hip. Medications:None. Allergies:No Known Drug Allergy. FAMILY HISTORYNegative. No significant family medical history. (Electronically signed by Ector Wilkerson PJenny 08/08/2019 13:32) Name Value Range Interpretation Code Description [facility]) ID Date Data Source [id number] 08/07/2019 11:28:00 AM EDT [facility] [...] Name Value Range Interpretation Code Description Data [facility] Supporting Document(s) ID Date Data Source [id number] 08/07/2019 11:04:00 AM EDT [facility] l TSYSORDER [id number] Name Value Range Interpretation Code Description Data Martina rce(s) Supporting Document(s) GLUCOSE 92 mg/dL 74-106 [facility] BLOOD UREA NITROGEN 14 mg/dL 7-18 [facility] ital CREATININE 0.8 mg/dL 0.7-1.3 [facility] SODIUM 139 mmol/L 136-145 [facility] POTASSIUM 4.0 mmol/L 3.5-5.1 [facility] CHLORIDE 105 mmol/L 98-107 [facility] CO2 29 mmol/L 21-32 [facility] CALCIUM 8.8 mg/dL 8.5-10.1 [facility] ANION GAP 5.0 mmol/L 5-12 [facility] GLOMERULAR FILTRATION RATE >90 mL/min [facility] GFR IS CALCULATED IN mL/min/1.73m2 MAUREEN L FUNCTION: >90MILDLY DECREASED: 60-89MILDY TO MODERATELY DECREASED: 45-59 MODERATELY TO SEVERELY DECREASED: 30-44SEVERELY DECREASED: 15-29RENAL FAILURE: <15 AST 15 U/L 15-37 [facility] ALT 21 U/L 12-78 [facility] ALKALINE PHOSPHATASE 60 U/L 46-116 [facility] TOTAL BILIRUBIN 0.3 mg/dL 0.2-1.0 [facility] TOTAL PROTEIN 7.0 g/dl 6.4-8.2 [facility] ALBUMIN 3.8 gm/dL 3.4-5.0 [facility] ID Date Data Source [id number] 08/07/2019 10:45:00 AM EDT [facility] TSYSORDER [id number] Name Value Range Interpretation Code Description Data Martina rce(s) Supporting Document(s) WHITE BLOOD COUNT 7.7 K/mm3 4.0-10.0 [facility] RED [facility]LOOD COUNT 5.23 M/mm3 4.50-6.00 [facility] HEMOGLOBIN 15.5 gm/dL 14.0-18.0 [facility] HEMATOCRIT 45.3 % 42.0-54.0 [facility] MEAN CELL VOLUME 86.6 fl 80-96 [facility] MEAN CORPUSCULAR HEMOGLOBIN 29.6 pg 27.0-31.0 [facility] MEAN CORPUSCULAR HGB CONC 34.2 g/dl 32.0-36.0 [facility] RED CELL DISTRIBUTION WIDTH 12.8 % 10.0-14.5 [facility] PLATELET COUNT 214 K/mm3 172-450 [facility] MEAN PLATELET VOLUME 10.5 fl 9.0-13.0 [facility] % 67.1 % 50-80.0 [facility] IG% 0.1 % 0.0-0.2 [facility] LYMPH % 22.3 % 25.0-50.0 L [facility] MONO % 7.8 % 2.0-10.0 [facility] EOS % 2.1 % 0-5.0 [facility] BASO % 0.6 % 0.0-2.0 [facility] GRAN # 5.2 K/mm3 2.0-8.00 [facility] IG# 0.0 K/mm3 0.0-0.2 [facility] LYMPH # 1.7 K/mm3 1.0-5.0 [facility] MONO # 0.6 K/mm3 0.10-1.20 [facility] EOS # 0.2 K/mm3 0.0-0.5 [facility] BASO # 0.1 K/mm3 0.0-0.2 [facility] ID Date Data Source [id number] 05/07/2019 01:34:00 AM EDT [facility] Patient: DESTINEE ARCE Observation Rep ort - Physicians/Mid Levels [facility].VisitID: [id number] [place] [address] [phone], MRegistration Date/Time: 05/06/2019 17:34 Weight:99.7 kg (S). [...] rce(s) Supporting Document(s) ID Date Data Source [id number] 05/06/2019 09:15:00 PM EDT [facility] DATE OF EXAMINATION: 05/06/2019 20:09 EDT ABD/PEL [...] rce(s) Supporting Document(s) ID Date Data Source [id number] 05/06/2019 07:57:00 PM EDT [facility] TSYSORDER [id number] Name Value Range Interpretation Code Description Data Martina rce(s) Supporting Document(s) MAGNESIUM 2.2 mg/dL 1.8-2.4 [facility] ID Date Data Source [id number] 05/06/2019 07:57:00 PM EDT [facility] TSYSORDER [id number] Name Value Range Interpretation Code Description Data Martina rce(s) Supporting Document(s) GLUCOSE 69 mg/dL 74-106 [facility] BLOOD UREA NITROGEN 13 mg/dL 7-18 [facility] ital CREATININE 0.8 mg/dL 0.7-1.3 [facility] SODIUM 143 mmol/L 136-145 [facility] POTASSIUM 4.0 mmol/L 3.5-5.1 [facility] CHLORIDE 106 mmol/L 98-107 [facility] CO2 31 mmol/L 21-32 [facility] CALCIUM 9.1 mg/dL 8.5-10.1 [facility] ANION GAP 6.0 mmol/L 5-12 [facility] GLOMERULAR FILTRATION RATE >90 mL/min [facility] GFR IS CALCULATED IN mL/min/1.73m2 MAUREEN L FUNCTION: >90MILDLY DECREASED: 60-89MILDY TO MODERATELY DECREASED: 45-59 MODERATELY TO SEVERELY DECREASED: 30-44SEVERELY DECREASED: 15-29RENAL FAILURE: <15 AST 19 U/L 15-37 [facility] ALT 23 U/L 12-78 [facility] ALKALINE PHOSPHATASE 65 U/L 46-116 [facility] pital TOTAL BILIRUBIN 0.2 mg/dL 0.2-1.0 [facility] TOTAL PROTEIN 6.9 g/dl 6.4-8.2 [facility] ALBUMIN 4.0 gm/dL 3.4-5.0 [facility] ID Date Data Source [id number] 05/06/2019 07:57:00 PM EDT [facility] [id number] Name Value Range Interpretation Code Description Data Martina rce(s) Supporting Document(s) LIPASE 155 U/L 73-393 [facility] ID Date Data Source [id number] 05/06/2019 07:53:00 PM EDT [facility] l TSYSORDER [id number] Name Value Range Interpretation Code Description Data Martina rce(s) Supporting Document(s) PARTIAL THROMBOPLASTIN TIME 27.0 SECONDS 21.4-30.2 [facility] ID Date Data Source [id number] 05/06/2019 07:53:00 PM EDT [facility] TSYSORDER [id number] Name Value Range Interpretation Code Description Data Martina rce(s) Supporting Document(s) PROTHROMBIN TIME (PATIENT) 9.9 SECONDS 9.2-11.6 [facility] INR 0.95 0.87-1.06 [facility] ID Date Data Source [id number] 05/06/2019 07:42:00 PM EDT [facility] TSYSORDER [id number] Name Value Range Interpretation Code Description Data Martina rce(s) Supporting Document(s) WHITE BLOOD COUNT 8.4 K/mm3 4.0-10.0 [facility] al RED BLOOD COUNT 4.91 M/mm3 4.50-6.00 [facility] HEMOGLOBIN 14.4 gm/dL 14.0-18.0 [facility] HEMATOCRIT 43.1 % 42.0-54.0 [facility] MEAN CELL VOLUME 87.8 fl 80-96 [facility] MEAN CORPUSCULAR HEMOGLOBIN 29.3 pg 27.0-31.0 [facility] MEAN CORPUSCULAR HGB CONC 33.4 g/dl 32.0-36.0 [facility] RED CELL DISTRIBUTION WIDTH 12.9 % 10.0-14.5 [facility] PLATELET COUNT 214 K/mm3 172-450 [facility] MEAN PLATELET VOLUME 10.7 fl 9.0-13.0 [facility] pital GRAN % 60.5 % 50-80.0 [facility] IG% 0.1 % 0.0-0.2 [facility] LYMPH % 26.9 % 25.0-50.0 [facility] MONO % 9.6 % 2.0-10.0 [facility] EOS % 2.3 % 0-5.0 [facility] BASO % 0.6 % 0.0-2.0 [facility] GRAN # 5.1 K/mm3 2.0-8.00 [facility] IG# 0.0 K/mm3 0.0-0.2 [facility] LYMPH # 2.3 K/mm3 1.0-5.0 [facility] MONO # 0.8 K/mm3 0.10-1.20 [facility] EOS # 0.2 K/mm3 0.0-0.5 [facility] BASO # 0.1 K/mm3 0.0-0.2 [facility] ID Date Data Source [id number] 05/09/2019 12:48:00 PM [facility] Name Value Range Interpretation Code Description Data Martina rce(s) Supporting Document(s) [facility] ID Date Data Source [id number] 05/06/2019 07:29:00 PM EDT [facility] TSYSORDER [id number] Name Value Range Interpretation Code Description Data Martina rce(s) Supporting Document(s) URINE RBC 1-3 /hpf 0-3 [facility] URINE WBC 20-25 /hpf 0-5 H [facility] URINE CULTURE ADDED URINE EPITHELIAL CELLS 1+ /hpf 0 [facility] ospital URINE BACTERIA 1+ NONE SEEN [facility] URINE MUCUS 1+ NEGATIVE H [facility] ID Date Data Source [id number] 05/06/2019 07:20:00 PM EDT [facility] ital TSYSORDER [id number] Name Value Range Interpretation Code Description Data Martina rce(s) Supporting Document(s) URINE COLOR. YELLOW [facility] URINE APPEARANCE CLEAR [facility] l SPECIFIC GRAVITY,URINE 1.025 1.001-1.035 [facility] URINE LEUKOCYTE ESTERASE 1+(SMALL) NEGATIVE H [facility] URINE NITRATE NEGATIVE NEGATIVE [facility] PH,URINE 7.0 5.0-9.0 [facility] URINE PROTEIN NEGATIVE mg/dL NEGATIVE [facility] deyvi URINE GLUCOSE (UA) NEGATIVE mg/dL NEGATIVE [facility] URINE KETONE NEGATIVE mg/dL NEGATIVE [facility] UROBILINOGEN NORMAL(0.2-1) mg/dL 0-1 [facility] URINE BILIRUBIN NEGATIVE NEGATIVE [facility] URINE BLOOD NEGATIVE NEGATIVE [facility] Manual Entery of ALL Results have been Lian CALERO on 05/06/19 @ 1919. Procedure
[2020-04-13 21:17] LABS: ALBUMIN 4.1 GM/DL (3.2-5.2); ALT/SGPT 25 U/L (12-78); BILIRUBIN,DIRECT 0.1 MG/DL (0.0-0.2); BILIRUBIN,TOTAL 0.4 MG/DL (0.2-1.0); BLOOD UREA NITROGEN 20 MG/DL (7-18); CALCIUM LEVEL 9.5 MG/DL (8.5-10.1); CARBON DIOXIDE LEVEL 29 MEQ/L (21-32); CHLORIDE LEVEL 107 MEQ/L (98-107); CREATININE FOR GFR 0.93 MG/DL (0.70-1.30); GLOMERULAR FILTRATION RATE > 60.0 (>60); GLUCOSE, FASTING 92 MG/DL (70-100); LIPASE 78 U/L (73-393); POTASSIUM SERUM 3.9 MEQ/L (3.5-5.1); SODIUM LEVEL 143 MEQ/L (136-145); TOTAL PROTEIN 6.9 GM/DL (6.4-8.2)
[2020-04-13 21:50] LABS: RSV AMPLIFICATION NEGATIVE (NEGATIVE)
[2020-04-13] MEDS ORDERED: ONDA4TAB6 PO (22:07)
[2020-04-13 22:17] VITALS: BP 122/61
== END 2020-04-13 22:19 | disposition home or self-care (01) ==
LOC: M ED 20:01
DX: U07.1 COVID-19 (principal); R51.9 Headache, unspecified; R10.13 Epigastric pain; M54.2 Cervicalgia; R11.2 Nausea with vomiting, unspecified; R63.8 Other symptoms and signs concerning food and fluid intake; F32.9 Major depressive disorder, single episode, unspecified; J45.909 Unspecified asthma, uncomplicated; K52.9 Noninfective gastroenteritis and colitis, unspecified; Z87.442 Personal history of urinary calculi; F17.200 Nicotine dependence, unspecified, uncomplicated; Z88.8 Allergy status to other drugs, medicaments and biological substances
CPT/HCPCS: 36415; 80048; 80076; 81001; 83605; 83690; 85025; 85652; 86140; 87040; 87086; 87631; 96361; 96374; 96375; 99284; J1885; J2405

== ENCOUNTER 2020-05-13 17:04 | Emergency (ER) | payer OTHER ==
[~2020-05-13] VITALS: Ht 185.4 cm; Wt 92.0 kg
[2020-05-13 17:04] VITALS: BP 139/85
[~2020-05-13 17:04] MED LIST changes: +ONDA4TAB6 PO
[2020-05-13] MEDS ORDERED: AUGM875T28 PO (17:35)
[2020-05-13] MEDS ORDERED: AUGMENTIN 875 MG TAB PO ONE (17:35)
[2020-05-13] MEDS ORDERED: KETOROLAC TROMETHAMINE 10 MG TAB PO ONE (17:35)
[2020-05-13] MEDS ORDERED: predniSONE 20 MG TAB PO ONE (17:35)
[2020-05-13] MEDS ORDERED: PRED20TA PO (17:35)
== END 2020-05-13 18:04 | disposition home or self-care (01) ==
LOC: M ED 17:04
DX: J01.00 Acute maxillary sinusitis, unspecified (principal); F17.200 Nicotine dependence, unspecified, uncomplicated; Z88.6 Allergy status to analgesic agent

== ENCOUNTER 2020-05-20 02:07 | Emergency (ER) | payer OTHER ==
[~2020-05-20] VITALS: Ht 180.3 cm; Wt 93.0 kg
[2020-05-20] MEDS ORDERED: TETRACAINE 0.5% OPHTH SOLN 4ML OU ONE (02:20)
[2020-05-20] MEDS ORDERED: FLUORESCEIN OPHTH 1 MG STRIP OU ONE (02:45)
[2020-05-20] MEDS ORDERED: ERYT5OIN25 OP (03:00)
[2020-05-20] MEDS ORDERED: OXYCODONE/APAP 5MG/325MG(BULK FOR ED) 1 TABLET PO ONE (03:00)
[2020-05-20] MEDS ORDERED: ERYTHROMYCIN OPHTH OINT OU ONE (03:00)
[2020-05-20 03:15] VITALS: BP 132/68
== END 2020-05-20 03:16 | disposition home or self-care (01) ==
LOC: M ED 02:07
DX: H16.133 Photokeratitis, bilateral (principal); W89.0XXA Exposure to welding light (arc), initial encounter; F17.200 Nicotine dependence, unspecified, uncomplicated; Z88.8 Allergy status to other drugs, medicaments and biological substances; Y92.9 Unspecified place or not applicable; Y93.9 Activity, unspecified; Y99.9 Unspecified external cause status

== ENCOUNTER 2020-08-07 20:12 | Emergency (ER) | payer OTHER ==
[~2020-08-07] VITALS: Ht 182.9 cm; Wt 91.4 kg
[~2020-08-07 20:12] MED LIST changes: +ERYT5OIN25 OP
[2020-08-07] MEDS ORDERED: KETO10TAB PO (21:40)
[2020-08-07] MEDS ORDERED: predniSONE 20 MG TAB PO ONE (21:40)
[2020-08-07] MEDS ORDERED: KETOROLAC 60MG 2ML VIAL IM ONE (21:40)
[2020-08-07] MEDS ORDERED: AUGMENTIN 875 MG TAB PO ONE (21:40)
[2020-08-07] MEDS ORDERED: PRED20TA PO (21:40)
[2020-08-07] MEDS ORDERED: AUGM875T28 PO (21:40)
[2020-08-07 22:20] VITALS: BP 127/77
== END 2020-08-07 22:21 | disposition home or self-care (01) ==
LOC: M ED 20:12
DX: J01.01 Acute recurrent maxillary sinusitis (principal); H66.91 Otitis media, unspecified, right ear; J45.909 Unspecified asthma, uncomplicated; Z79.899 Other long term (current) drug therapy
CPT/HCPCS: 96372; 99283; J1885; J7512

== ENCOUNTER 2020-09-13 10:01 | Emergency (ER) | payer OTHER ==
[~2020-09-13] VITALS: Ht 180.3 cm; Wt 87.1 kg
[2020-09-13 10:01] VITALS: BP 124/70
[~2020-09-13 10:01] MED LIST changes: +KETO10TAB PO
[2020-09-13] MEDS ORDERED: FLUORESCEIN OPHTH 1 MG STRIP OU ONE (11:10)
[2020-09-13] MEDS ORDERED: TETRACAINE 0.5% OPHTH SOLN 4ML OU ONE (11:10)
[2020-09-13] MEDS ORDERED: HYDR-3715 PO (11:37)
[2020-09-13] MEDS ORDERED: ERYT5OIN25 OP (11:37)
== END 2020-09-13 11:47 | disposition home or self-care (01) ==
LOC: M ED 10:01
DX: H16.8 Other keratitis (principal); F17.200 Nicotine dependence, unspecified, uncomplicated; Z88.8 Allergy status to other drugs, medicaments and biological substances

== ENCOUNTER 2021-02-13 13:39 | Emergency (ER) | payer OTHER ==
[~2021-02-13] VITALS: Ht 180.3 cm; Wt 90.8 kg
[~2021-02-13 13:39] MED LIST changes: +CLIN-250 PO; -CLIN300C6 PO; +HYDR-3715 PO
[2021-02-13] MEDS ORDERED: KETOROLAC 60MG 2ML VIAL IM ONE (15:10)
[2021-02-13] MEDS ORDERED: methocarbamoL 750 MG TAB PO ONE (15:10)
--- NOTE | 2021-02-13 16:05 | REPVR ---
PROCEDURE INFORMATION: Exam: CT Cervical Spine Without Contrast Exam date and time: 02/13/2021 3:08 PM Age: 25 years old Clinical indication: Neck pain; Additional info: Neck pain with numbness right arm TECHNIQUE: Imaging protocol: Computed tomography images of the cervical spine without contrast. Radiation optimization: All CT scans at this facility use at least one of these dose optimization techniques: automated exposure control; mA and/or kV adjustment per patient size (includes targeted exams where dose is matched to clinical indication); or iterative reconstruction. COMPARISON: CR Sinuses 01/05/2020 6:45 PM FINDINGS: Bones/joints: Anatomic alignment. No acute fracture seen. Discs/Spinal canal/Neural foramina: Minimal uncovertebral arthropathy at C3-C4 and C4-C5 without contribution to foraminal stenoses. No high-grade central spinal canal stenoses. Sinuses: Trace right ethmoid mucosal thickening. Dental: Dental caries are noted. Lungs: Lung apices are normal. Soft tissues: Unremarkable. IMPRESSION: Minimal degenerative changes. No stenoses identified. Electronically signed by: Dorie Tavares On 02/13/2021 16:04:39 PM
--- NOTE | 2021-02-13 16:10 | REPVR ---
PROCEDURE INFORMATION: Exam: CT Thoracic Spine Without Contrast Exam date and time: 02/13/2021 3:08 PM Age: 25 years old Clinical indication: Other: Neck pain with numbness right arm TECHNIQUE: Imaging protocol: Computed tomography images of the thoracic spine without contrast. Radiation optimization: All CT scans at this facility use at least one of these dose optimization techniques: automated exposure control; mA and/or kV adjustment per patient size (includes targeted exams where dose is matched to clinical indication); or iterative reconstruction. COMPARISON: CT ABD/PEL W/IV ORAL CONTRAS 07/26/2018 2:57 PM FINDINGS: Vertebrae: Mild upper thoracic dextroconvex scoliosis. No acute fracture seen. Discs/Spinal canal/Neural foramina: No bony or obvious soft tissue impingement identified upon the central spinal canal or neural foramina. Other bones/joints: There is a pseudoarthrosis between the right 5th and 6th posterior ribs, coronal image 28 series 403. Soft tissues: Unremarkable. Lungs: The lungs demonstrate dependent atelectasis. Mediastinum: Small hiatal hernia. IMPRESSION: 1. No acute findings or stenoses identified. 2. A pseudoarthrosis between the right 5th and 6th posterior ribs. 3. Mild upper thoracic dextroconvex scoliosis. Electronically signed by: Dorie Tavares On 02/13/2021 16:09:48 PM
[2021-02-13] MEDS ORDERED: NORCO, ANEXSIA 5/325MG TABLET (HYDROcodone/ACETAMINOPHEN) PO ONE (16:40)
[2021-02-13] MEDS ORDERED: NAPR-837 PO (18:01)
[2021-02-13] MEDS ORDERED: CYCL-707 PO (18:01)
[2021-02-13] MEDS ORDERED: LIDO5DIS41 TD (18:01)
[2021-02-13 18:12] VITALS: BP 168/74
== END 2021-02-13 18:15 | disposition home or self-care (01) ==
LOC: M ED 13:39
DX: M62.830 Muscle spasm of back (principal); M54.2 Cervicalgia; M54.9 Dorsalgia, unspecified; Z87.442 Personal history of urinary calculi; R51.9 Headache, unspecified; J45.909 Unspecified asthma, uncomplicated; F41.9 Anxiety disorder, unspecified; F32.9 Major depressive disorder, single episode, unspecified; F17.200 Nicotine dependence, unspecified, uncomplicated; Z88.8 Allergy status to other drugs, medicaments and biological substances
CPT/HCPCS: 72125; 72128; 96372; 99283; J1885

== ENCOUNTER 2022-07-25 14:56 | Emergency (ER) | payer OTHER ==
[~2022-07-25] VITALS: Ht 180.3 cm; Wt 97.8 kg
[2022-07-25 14:56] VITALS: BP 131/76
[~2022-07-25 14:56] MED LIST changes: +BENZ2TAB48 PO; -BENZ2TAB5 PO; +CYCL-707 PO; -HALO5TA PO; +HALO5TAB33 PO; +LIDO5DIS41 TD; +NAPR-837 PO; -OMEP-221 PO; +OMEP40CA5 PO
== END 2022-07-25 16:59 | disposition left against medical advice (07) ==
LOC: M ED 14:56
DX: Z53.21 Procedure and treatment not carried out due to patient leaving prior to being seen by health care provider (principal)